=== PATIENT | female | born 2000 | race Caucasian/White ===

== ENCOUNTER 2021-04-16 10:08 | Emergency (ER) | payer BC, SELFPAY ==
[2021-04-16 11:57] VITALS: BP 114/63; PULSE 98; RESP 18; TEMP 36.6; O2SAT 99; BMI 22.0
--- NOTE | 2021-04-16 13:05 | ED.GENADULT ---
HPI - General Adult General Chief complaint: Weakness Stated complaint: TIRED NAUSEA Time Seen by Provider: 04/16/21 12:00 Source: patient Mode of arrival: ambulatory Limitations: no limitations History of Present Illness HPI narrative: 21 y/o female presenting with feeling unwell. She reports feeling fatigued and tired. She slept much of the day yesterday and was nauseous. She did not vomit and denies abdominal pain. She has been eating and drinking normally. She lives a sober living house where someone was recently diagnosed with C. diff. She was sent in for evaluation for possible C. diff given she wasn't feel well. She denies diarrhea, she had a normal BM yesterday. She has had no fever, chills. No cough, SOB, body aches, sore throat or muscle aches. She denies chance of , no sexual activity in >4 months. No urinary symptoms. She has not had her menses in years and has an appointment with [facility] next week for evaluation of possible PCOS. MD complaint: fatigue Onset (ago): day(s) (1) Radiation: non-radiation Severity: moderate Severity scale (1-10): 5 Relieving factors: rest Exacerbating factors: movement Associated symptoms: denies other symptoms Treatments prior to arrival: none Related Data Allergies Allergy/AdvReac Type Severity Reaction Status Date / Time No Known Allergies Allergy Verified 04/16/21 11:56 Review of Systems Review of Systems: Constitutional: No Fever, No Chills ENT/Mouth: No sore throat, No Rhinorrhea, No Swallowing Difficulty Eyes: No Eye Pain, No Swelling, No Redness Cardiovascular: No Chest Pain, No SOB, No Orthopnea, No Edema Respiratory: No Cough, No Sputum, No Wheezing, No dyspnea Gastrointestinal: + Nausea, No Vomiting, No Diarrhea, No abdominal Pain, No Hematochezia, No Melena Genitourinary: No Dysuria, No Urinary Frequency, No Hematuria Musculoskeletal: No joint pain, No Myalgias Skin: No Skin Lesions, No rash Neuro: + Weakness (generalized), No Numbness, No Dizziness, No Headache Psych: No Anxiety/Panic, No Depression Heme/Lymph: No Bruising, No Lymphadenopathy Endocrine: No Polyuria, No Polydipsia PMFSH Past Medical History Attestation statement: The following information was validated with the patient. Medical History Anxiety PTSD (post-traumatic stress disorder) Social History Social History Advance Directives: Yes Advance Directives Information Provided: Yes Advance Directives on File: No Physical Exam Vital Signs: Vital Signs: Last Vital Signs Temp 97.9 F 04/16/21 11:57 Pulse 98 04/16/21 11:57 Resp 18 04/16/21 11:57 BP 114/63 04/16/21 11:57 Pulse Ox 99 04/16/21 11:57 Body Mass Index 22.0 Appearance: Alert. Oriented X3. No acute distress. Eyes: Pupils equal, round and reactive to light. ENT: Pharynx normal. No tonsillar exudate or swelling. Neck: Normal inspection. Neck supple. No LAD CVS: Normal heart rate and rhythm. Pulses normal. Respiratory: No respiratory distress. Breath sounds normal. Abdomen: Soft and nontender. +BS x4 Skin: Skin warm and dry. Normal skin color. Normal skin turgor. No rashes. Extremities: No lower extremity edema. Neuro: Oriented X 3. No motor deficit. No sensory deficit. Course Course Course Narrative: 21 y/o female presenting with fatigue and generalized weakness since yesterday. recent possible exposure to C diff. She has no signs or symptoms of C diff. UA is negative for infection. Upreg negative. Viral PCR sent. Doubt mono without LAD or sore throat. Patient's exam is benign. She has follow up with [facility] next week. Possibly hormonally related, had come uterine cramping yesterday but no vaginal bleeding. She is stable for discharge with plans to f/u with her doctor as outpatient. She was advised to come back to the ER or call her doctor if she develops diarrhea or abdominal pain. Medical Decision Making Lab Data Labs: Lab Results 04/16/21 04/16/21 04/16/21 Range/Units 13:16 13:16 13:16 Urine Color YELLOW Urine Appearance HAZY Urine pH 6.0 (5.0-8.0) Ur Specific [place] >= 1.030 H (1.005-1.025) Urine Protein NEG (NEG-TRACE) MG/DL Urine Glucose (UA) NEG (NEG) MG/DL Urine Ketones 5 (NEG) MG/DL Urine Blood NEG (NEG) Urine Nitrite NEG (NEG) Ur Leukocyte Esterase NEG (NEG) Urine Test NEGATIVE (NEGATIVE) Coronavirus (PCR) NEGATIVE (Negative) Influenza Type A (PCR) NEGATIVE (Negative) Influenza Type B (PCR) NEGATIVE (Negative) RSV RNA Qual (PCR) NEGATIVE (Negative) Discharge Plan Discharge Clinical Impression: Fatigue Qualifiers: Fatigue type: unspecified Qualified Code(s): R53.83 - Other fatigue Patient Disposition: Home, Self-Care Instructions: Fatigue (ED) Additional Instructions: Your urine test was normal today. was negative. You were tested for COVID-19, Flu & RSV today. We will call you with the results this afternoon. You do NOT have C. diff colitis in the absence of diarrhea. If you develop diarrhea or abdominal pain, come back to the ER or call your doctor for C. diff testing. Follow up with your doctor as needed.
[2021-04-16 13:28] LABS: Glucose Urine UA NEG (NEG); Leukocyte Esterase Urine NEG (NEG); Nitrite Urine NEG (NEG); Specific Gravity - Urine >= 1.030 (1.005-1.025); Urine Blood NEG (NEG); Urine Ketones 5 MG/DL (NEG); Urine Protein NEG (NEG-TRACE)
[2021-04-16 13:29] LABS: Appearance Urine HAZY; Color Urine YELLOW
[2021-04-16 13:30] LABS: UPreg QC Valid YES; Urine Pregnancy NEGATIVE (NEGATIVE)
[2021-04-16 14:46] LABS: Influenza A PCR NEGATIVE (Negative); Influenza B PCR NEGATIVE (Negative); Resp Syncy Virus RNA Qual PCR NEGATIVE (Negative); SARS COV2 PCR INHOUSE NEGATIVE (Negative)
== END 2021-04-16 15:21 | disposition home or self-care (01) ==
PROVIDERS: Physician Assistant; Emergency Provider Internal Medicine; PCP Nurse Practitioner Family
DX: R53.83 Other fatigue (principal); Z20.822 Contact with and (suspected) exposure to COVID-19
CPT/HCPCS: 0241U; 36415; 81003; 81025; 99283

== ENCOUNTER 2021-05-07 13:19 | Emergency (ER) | payer BC, SELFPAY ==
[2021-05-07 13:52] VITALS: BP 109/61; PULSE 113; RESP 18; TEMP 37.1; O2SAT 98; BMI 22.0
--- NOTE | 2021-05-07 16:19 | ED_ITS ---
HPI - Back Pain/Injury General Chief Complaint: Back Pain/Injury Stated Complaint: back pain lt side only Time Seen by Provider: 05/07/21 15:10 Source: patient Mode of arrival: ambulatory Limitations: no limitations History of Present Illness HPI Narrative: 21-year-old female with history of PCOS anxiety, depression presents to the ED with atraumatic left-sided back pain. Patient states she developed left-sided back pain approximately 2 days ago shortly after she got her 1st visor COVID vaccine. Denies any abdominal pain nausea or vomiting. Denies any changes in bowel or bladder habits. Denies any active vaginal bleeding or discharge. Denies any burning with urination. Due to concern she felt she needed to be seen. Motrin Tylenol have been used at home for pain control. Related Data Previous Rx's Medication Instructions Recorded acetaminophen [Tylenol] 650 mg PO Q6H PRN #40 cap 05/07/21 cyclobenzaprine 5 mg PO TID PRN #9 tab 05/07/21 ibuprofen 600 mg PO Q6H PRN 10 Days #40 tab 05/07/21 Allergies Allergy/AdvReac Type Severity Reaction Status Date / Time No Known Allergies Allergy Verified 05/07/21 13:51 Review of Systems Review of Systems: Constitutional : No Weight loss, No Fever, No Chills, No Night Sweats, No Fatigue, No Malaise ENT/Mouth : No Hearing loss, No Ear Pain, No Nasal Congestion, No Sinus Pain, No Hoarseness, No sore throat, No Rhinorrhea, No Swallowing Difficulty Eyes: No Eye Pain, No Swelling, No Redness, No Foreign Body, No Discharge, No Vision Changes Cardiovascular : No Chest Pain, No SOB, No Dyspnea on Exertion, No Orthopnea, No Edema, No Palpitations Respiratory : No Cough, No Sputum, No Wheezing, No Smoke Exposure, No Dyspnea Gastrointestinal : No Nausea, No Vomiting, No Diarrhea, No Constipation, No abdominal Pain, No Hematochezia, No Melena Genitourinary : no irregular bleeding, No Dysuria, No Urinary Frequency, No Hematuria, No Urinary Incontinence, No Urgency, + Flank Pain, No Urinary Flow Changes, No Hesitancy Musculoskeletal : + back pain No joint pain, No Myalgias, No Joint Swelling Skin : No Skin Lesions, No rash Neuro : No Weakness, No Numbness, No Paresthesias, No Loss of Consciousness, No Dizziness, No Headache Psych : No Anxiety/Panic, No Depression, No SI/HI/AH/VH, No Social Issues, Heme/Lymph: No Bruising, No Bleeding,No Lymphadenopathy Endocrine : No Polyuria, No Polydipsia, No Temperature Intolerance [facility] Past Medical History Attestation statement: The following information was validated with the patient. Source: old records reviewed and nursing notes reviewed Medical History (Updated 05/07/21 @ 16:40 by SEGUN Pleitez) Anxiety Depression PTSD (post-traumatic stress disorder) Social History Social History Advance Directives: No Advance Directives Information Provided: Yes Patient : No Physical Exam Vital Signs: Vital Signs: Last Vital Signs Temp 98.3 F 05/07/21 16:59 Pulse 89 05/07/21 16:59 Resp 16 05/07/21 16:59 BP 108/60 05/07/21 16:59 Pulse Ox 99 05/07/21 16:59 Body Mass Index 22.0 vital signs have been reviewed as normal and appeared to be correct. Blood pressure normal. Heart rate normal. Respiration rate normal. Temperature normal. Oxygen saturation normal. Appearance: Alert. Oriented X3. No acute distress. Head: Normal external exam. Normocephalic. Atraumatic. No Mauricio signs noted. No raccoon eyes noted Eyes: Conjunctiva and sclera normal. ENT: EAC normal. Moist mucous membranes. No drooling noted. No muffled voice noted. Neck: Normal inspection. Neck supple. FROM. No meningeal signs. CVS: Pulses normal throughout. Respiratory: No respiratory distress. Painless inspiration. No accessory muscle usage noted Abdomen: No visible injury noted. Abdomen soft nondistended nontender Back: Full range of motion noted. Patient with mild left-sided paraspinal back pain no midline tenderness to lumbar or thoracic spine. Mild left-sided CVA tenderness noted. No step-offs or gross deformities. No overlying erythema ecchymosis or crepitus. Skin: Skin warm and dry. Normal skin color. Normal skin turgor. Extremities: No lower extremity edema. Extremities exhibit normal range of motion. Neuro: Oriented X 3. No motor deficit. No sensory deficit. Course Reevaluation(s) Reevaluation #1: Patient is not , urinalysis is negative for both infection and red blood cells feel that this is musculoskeletal will discharge home with muscle relaxer and close outpatient follow-up. MDM - Back Pain/Injury MDM Narrative Medical decision making narrative: patient's vital signs are stable and she is afebrile. Patient presenting to the ED with left-sided atraumatic pain that d oes also involve the left CVA region will obtain urinalysis to ensure the absence of RBC/UTI symptoms /signs. Abdomen soft nondistended nontender no acute concern for intra-abdominal pathology. Will continue to monitor and reassess pending the above. Given the absence of midline spinal pain or injury low suspicion for spinal fracture. No need for imaging Lab Data Labs: Lab Results 05/07/21 05/07/21 Range/Units 16:20 16:20 Urine Color YELLOW Urine Appearance CLEAR Urine pH 6.0 (5.0-8.0) Ur Specific [place] <= 1.005 (1.005-1.025) Urine Protein NEG (NEG-TRACE) MG/DL Urine Glucose (UA) NEG (NEG) MG/DL Urine Ketones NEG (NEG) MG/DL Urine Blood NEG (NEG) Urine Nitrite NEG (NEG) Ur Leukocyte Esterase NEG (NEG) Urine Test NEGATIVE (NEGATIVE) Discharge Plan Discharge Clinical Impression: Thoracic back pain Qualifiers: Chronicity: acute Back pain laterality: left Qualified Code(s): M54.6 - Pain in thoracic spine Patient Disposition: Home, Self-Care Instructions: Back Pain (ED) Additional Instructions: Your seen in the emergency department for left-sided back pain. Urine sample was performed and was negative for infection or red blood cells I do not believe that this is an infection or a kidney stone. This is likely muscular due to inflammation it is uncertain as this is from the COVID vaccine or not. You will be prescribed a muscle relaxer to help with pain continue to use Motrin and Tylenol at home for pain control Prescriptions: New cyclobenzaprine 5 mg tablet 5 mg PO TID PRN (Reason: muscle spasm) Qty: 9 RF: 0 ibuprofen 600 mg tablet 600 mg PO Q6H PRN (Reason: pain) 10 Days Qty: 40 RF: 0 acetaminophen [Tylenol] 325 mg capsule 650 mg PO Q6H PRN (Reason: pain) Qty: 40 RF: 0 Referrals: Yessi Alicea NP [Primary Care Provider] - 2 days Interventions: ED Discharge Assessment Last Done: 05/07/21 17:13 Discharge Date/Time: 05/07/21 17:13 Print Language: Uzbek
[2021-05-07 16:34] LABS: Glucose Urine UA NEG (NEG); Leukocyte Esterase Urine NEG (NEG); Nitrite Urine NEG (NEG); Specific Gravity - Urine <= 1.005 (1.005-1.025); Urine Blood NEG (NEG); Urine Ketones NEG (NEG); Urine Protein NEG (NEG-TRACE)
[2021-05-07 16:36] LABS: Appearance Urine CLEAR; Color Urine YELLOW
[2021-05-07 16:37] LABS: UPreg QC Valid YES; Urine Pregnancy NEGATIVE (NEGATIVE)
[2021-05-07 16:59] VITALS: BP 108/60; PULSE 89; RESP 16; TEMP 36.8; O2SAT 99
== END 2021-05-07 17:13 | disposition home or self-care (01) ==
PROVIDERS: Emergency Provider Emergency Medicine; PCP Nurse Practitioner Family
DX: M54.6 Pain in thoracic spine (principal)
CPT/HCPCS: 81003; 81025; 99283

== ENCOUNTER 2021-10-14 10:24 | Emergency (ER) | payer BC, SELFPAY ==
[2021-10-14 11:03] VITALS: BP 124/73; PULSE 85; RESP 16; TEMP 36.8; O2SAT 100; BMI 22.8
[2021-10-14 11:08] VITALS: BP 124/75; PULSE 80; O2SAT 100
--- NOTE | 2021-10-14 11:42 | ED_ITS ---
HPI - Head Injury General Chief complaint: Head Injury Stated complaint: HEAD INJURY? Time Seen by Provider: 10/14/21 11:42 Source: patient Mode of arrival: ambulatory Limitations: no limitations History of Present Illness HPI Narrative: 21 yo female past medical history significant for previous concussions, opiate use disorder presents to the emergency department with complains of headache, and blurred vision status post getting hit with a cutting board at work X1 day. Patient states that she was working in a cutting board fell on her head, at the time she started having headache, and progressively worsening blurred vision. She states this feels like all the other concussions she has had in the past. She also states she has a little bit nauseous, but nothing too severe. She denies chest pain, shortness of breath, dizziness, fevers, chills, abdominal pain, vomiting. NO LOC MD Complaint: head injury and head pain Onset (ago): day(s) Mechanism of Injury: work related injury Place: work Loss of Consciousness: no Location of injury: occipital Severity: mild Severity scale (1-10): 1 Quality: dull Radiation: none Other Injuries: none Associated symptoms: denies other symptoms Related Data Previous Rx's Medication Instructions Recorded acetaminophen 325 mg capsule 650 mg PO Q6H PRN #40 cap 05/07/21 (Tylenol) cyclobenzaprine 5 mg tablet 5 mg PO TID PRN #9 tab 05/07/21 ibuprofen 600 mg tablet 600 mg PO Q6H PRN 10 Days #40 tab 05/07/21 Allergies Allergy/AdvReac Type Severity Reaction Status Date / Time No Known Allergies Allergy Verified 05/07/21 13:51 Review of Systems Review of Systems: Constitutional : No Weight loss, No Fever, No Chills, No Fatigue, No Malaise ENT/Mouth : No sore throat, No Rhinorrhea Eyes: No Eye Pain, No Swelling, No Redness, + blurred vision Cardiovascular : No Chest Pain, No SOB, No Dyspnea on Exertion, No Orthopnea, No Edema, No Palpitations Respiratory : No Cough, No Sputum, No Wheezing Gastrointestinal : + Nausea, No Vomiting, No Diarrhea, No Constipation, No abdominal Pain, No Hematochezia, No Melena Genitourinary : No Dysuria, No Urinary Frequency, No Hematuria, Musculoskeletal : No joint pain, No Myalgias, No Joint Swelling Skin : No Skin Lesions, No rash Neuro : No Weakness, No Numbness, No Dizziness, + Headache All other systems reviewed and are negative [facility] Past Medical History Attestation statement: The following information was validated with the patient. Source: old records reviewed and nursing notes reviewed Medical History (Updated 10/14/21 @ 11:49 by SEGUN Wren) Anxiety Depression PTSD (post-traumatic stress disorder) Social History Social History Advance Directives: No Advance Directives Information Provided: Yes Patient : No Physical Exam Vital Signs: Vital Signs: Last Vital Signs Temp 98.3 F 10/14/21 11:03 Pulse 85 10/14/21 11:03 Resp 16 10/14/21 11:03 BP 124/73 10/14/21 11:03 Pulse Ox 100 10/14/21 11:03 Body Mass Index 22.8 Appearance: Alert.? Oriented X3.? No acute distress.? Head: Normocephalic, atraumatic, no step-offs or deformities Eyes: Pupils equal, round and reactive to light.?EOMI ENT: Pharynx normal.? Neck: Normal inspection.? Neck supple.? CVS: Normal heart rate and rhythm.? Pulses normal.? Respiratory: No respiratory distress.? Breath sounds normal.? Abdomen: Soft and nontender.? Skin: Skin warm and dry.? Normal skin color.? Normal skin turgor.? Extremities: No lower extremity edema.? No calf ttp. 5/5 strength to bilateral upper and lower extremities Back: No midline tenderness, no C-spine tenderness, full range of motion, no CVA tenderness bilaterally Neuro: Oriented X 3.? No motor deficit.? No sensory deficit. Normal gait no ataxia MDM - Head Injury [facility] Narrative Medical decision making narrative: 1143 21-year-old female past medical history significant for anxiety, depression, opiate use disorder, previous concussions presents to the emergency department with headache and blurred vision status post getting hit with a cutting board at work. Patient states she bent down, and a cutting board following her head. She immediately started experiencing a headache, and blurred vision. Patient states she has had multiple concussions in the past, and this feels like her typical concussion. She denies dizziness, fevers, chills, vomiting, chest pain, shortness of breath, weakness, disequilibrium, difficulties with ambulation. Upon physical examination patient appears well, no distress. She is alert and oriented x3. No focal neuro deficits. Steady gait free of ataxia. Head is normocephalic, atraumatic, no step-offs or deformities. Lungs are clear to auscultation bilaterally. S1 and S2 were appreciated free of murmurs. Abdomen soft nontender nondistended. Plan at this time is to give patient Tylenol and Zofran for nausea. At this time there is no need for any laboratory studies. There was no loss of consciousness, I used split decision-making with the patient and expressed to her that she can have a CT scan done to ensure that there is no internal bleeding, or fractures which I recommend, however patient does not not want this done, she does not feel as though this is necessary since this feels like her typical concussion in her typical headache. She has been advised to return to the emergency department with any new or worsening symptoms, or if she experiences dizziness, double vision, pain with extraocular movements, difficulties with ambulation, weakness, chest pain, shortness of breath. Patient is safe for discharge home with PCP follow-up. This is likely a concussion and unlikely that this is an ICH. Lab Data Labs: Lab Results 10/14/21 Range/Units 11:21 Urine Test NEGATIVE (NEGATIVE) Discharge Plan Discharge Clinical Impression: Concussion without loss of consciousness Patient Disposition: Home, Self-Care Instructions: Concussion (ED) Additional Instructions: Follow-up with your primary care provider this week. Continue taking your regular medicaiton. You can take ibuprofen every 6 hours, and Tylenol every 4 hours as needed for headache. Please limit your screen time as this can make a concussion worse. ?Rest your brain ? Return to the emergency department with new or worsening symptoms. Or if you develop dizziness, vision changes, worsening headache, changes in your gait, confusion, chest pain, shortness of breath, fevers. In case of emergency call 911 Prescriptions: No Action cyclobenzaprine 5 mg tablet 5 mg PO TID PRN (Reason: muscle spasm) Qty: 9 RF: 0 ibuprofen 600 mg tablet 600 mg PO Q6H PRN (Reason: pain) 10 Days Qty: 40 RF: 0 acetaminophen [Tylenol] 325 mg capsule 650 mg PO Q6H PRN (Reason: pain) Qty: 40 RF: 0 Referrals: Physician,Unknown J [Primary Care Provider] - 2 days Stand Alone Forms: Work/School Release
[2021-10-14 11:49] LABS: UPreg QC Valid YES; Urine Pregnancy NEGATIVE (NEGATIVE)
[2021-10-14] MEDS: Ondansetron ODT 4 MG TAB.RAPDIS TRANSLINGU (11:49)
[2021-10-14] MEDS: Acetaminophen 325 MG TABLET 650 MG PO (11:50)
== END 2021-10-14 12:01 | disposition home or self-care (01) ==
PROVIDERS: Emergency Provider Emergency Medicine Emergency Medical Services
DX: S06.0X0A Concussion without loss of consciousness, initial encounter (principal); W20.8XXA Other cause of strike by thrown, projected or falling object, initial encounter; Y93.9 Activity, unspecified; Y92.9 Unspecified place or not applicable; Y99.0 Civilian activity done for income or pay
CPT/HCPCS: 81025; 99283; 99284

== ENCOUNTER 2021-11-01 23:52 | Emergency (ER) | payer BC, SELFPAY ==
[2021-11-02 00:39] VITALS: BP 129/87; PULSE 103; RESP 20; TEMP 36.2; O2SAT 100; BMI 21.2
--- NOTE | 2021-11-02 02:38 | ED_ITS ---
HPI - General Adult General Chief complaint: Upper Respiratory Symptoms Stated complaint: covid symptoms, exposed Time Seen by Provider: 11/02/21 02:33 Source: patient Mode of arrival: ambulatory Limitations: no limitations History of Present Illness HPI narrative: Patient's emergency room complaining of generalized fatigue, stuffy nose for 2-3 days. Patient denies fever chills, complaining of occasional cough. Related Data Previous Rx's Medication Instructions Recorded acetaminophen 325 mg capsule 650 mg PO Q6H PRN #40 cap 05/07/21 (Tylenol) cyclobenzaprine 5 mg tablet 5 mg PO TID PRN #9 tab 05/07/21 ibuprofen 600 mg tablet 600 mg PO Q6H PRN 10 Days #40 tab 05/07/21 ibuprofen 600 mg tablet 600 mg PO Q6H PRN #10 tab 11/02/21 Allergies Allergy/AdvReac Type Severity Reaction Status Date / Time No Known Allergies Allergy Verified 05/07/21 13:51 Review of Systems Review of Systems: Constitutional : No Weight loss, No Fever, No Chills, No Night Sweats, No Fatigue, No Malaise ENT/Mouth : No Hearing loss, No Ear Pain, c/o Nasal Congestion, No Sinus Pain, No Hoarseness, No sore throat, complaining of stuffy nose Eyes: No Eye Pain, No Swelling, No Redness, No Foreign Body, No Discharge, No Vision Changes Cardiovascular : No Chest Pain, No SOB, No Dyspnea on Exertion, No Orthopnea, No Edema, No Palpitations Respiratory : No Cough, No Sputum, No Wheezing, No Smoke Exposure, No Dyspnea Gastrointestinal : No Nausea, No Vomiting, No Diarrhea, No Constipation, No abdominal Pain, No Hematochezia, No Melena Genitourinary : no irregular bleeding, No Dysuria, No Urinary Frequency, No Hematuria, No Urinary Incontinence, No Urgency, No Flank Pain, No Urinary Flow Changes, No Hesitancy Musculoskeletal : No joint pain, No Myalgias, No Joint Swelling Skin : No Skin Lesions, No rash Neuro : No Weakness, No Numbness, No Paresthesias, No Loss of Consciousness, No Dizziness, No Headache Psych : No Anxiety/Panic, No Depression, No SI/HI/AH/VH, No Social Issues, Heme/Lymph: No Bruising, No Bleeding,No Lymphadenopathy Endocrine : No Polyuria, No Polydipsia, No Temperature Intolerance PMFSH Past Medical History Medical History Anxiety Depression PTSD (post-traumatic stress disorder) Social History Social History Advance Directives: No Physical Exam Vital Signs: Vital Signs: Last Vital Signs Temp 97.1 F 11/02/21 00:39 Pulse 97 11/02/21 02:55 Resp 18 11/02/21 02:55 BP 125/82 11/02/21 02:55 Pulse Ox 100 11/02/21 02:55 BMI result Body Mass Index 21.2 Const: Other: Appearance: Alert. Oriented X3. No acute distress. Well- appearing Eyes: Pupils equal, round and reactive to light. ENT: Pharynx normal. Neck: Normal inspection. Neck supple. No lymph nodes noted. No crepitus CVS: Normal heart rate and rhythm. Pulses normal. Normal S1 and S2 Respiratory: No respiratory distress. Breath sounds normal. No Wheezing. No rales Abdomen: Soft and nontender. No rigidity. No distention. good BS x4 Skin: Skin warm and dry. Normal skin color. Normal skin turgor. Extremities: No lower extremity edema. No Lacerations. No Rash Neuro: Oriented X 3. No motor deficit. No sensory deficit. Moving all extermities. No slurred speech. Course Course Course Narrative: Patient's COVID test is negative. Patient likely having a viral syndrome. Medical Decision Making Lab Data Labs: Lab Results 11/02/21 Range/Units 02:44 COVID-19 (JACQUELINE) Negative (Negative) COVID-19 Clin Com See Note Discharge Plan Discharge Clinical Impression: Acute viral syndrome Patient Disposition: Home, Self-Care Instructions: Viral Syndrome (ED) Additional Instructions: Please follow-up with your primary care physician tomorrow. If you have any worsening or new symptoms, please return to the emergency room or call 911 Prescriptions: New ibuprofen 600 mg tablet 600 mg PO Q6H PRN (Reason: fever or pain) Qty: 10 RF: 0 No Action cyclobenzaprine 5 mg tablet 5 mg PO TID PRN (Reason: muscle spasm) Qty: 9 RF: 0 ibuprofen 600 mg tablet 600 mg PO Q6H PRN (Reason: pain) 10 Days Qty: 40 RF: 0 acetaminophen [Tylenol] 325 mg capsule 650 mg PO Q6H PRN (Reason: pain) Qty: 40 RF: 0 Stand Alone Forms: Work/School Release
[2021-11-02 02:55] VITALS: BP 125/82; PULSE 97; RESP 18; O2SAT 100
[2021-11-02 03:02] LABS: COVID-19 Test Negative (Negative); IDNOW Serial# 9DD0AD1C
--- NOTE | 2021-11-02 03:13 | PC.NURSE ---
pt sleeping, reviewed discharge instructions and medication. Pt verbalized understanding.
== END 2021-11-02 03:20 | disposition home or self-care (01) ==
PROVIDERS: Emergency Provider Emergency Medicine
DX: B34.9 Viral infection, unspecified (principal); R53.83 Other fatigue; Z20.822 Contact with and (suspected) exposure to COVID-19
CPT/HCPCS: 36415; 87635; 99283

== ENCOUNTER 2022-02-21 09:12 | Emergency (ER) | payer BC, SELFPAY ==
[2022-02-21 10:16] VITALS: PULSE 104; RESP 16; TEMP 37.7; O2SAT 99; BMI 22.2
--- NOTE | 2022-02-21 10:22 | ED_ITS ---
HPI - URI/Sore Throat General Chief Complaint: General Medical Stated Complaint: flu symptons sob weaknes Time Seen by Provider: 02/21/22 10:19 Source: patient Mode of arrival: ambulatory Limitations: no limitations History of Present Illness HPI Narrative: Patient is 22-year-old female with a past medical history of anxiety, depression, type 2 diabetes on metformin. Patient presents emergency department for evaluation of upper respiratory symptoms. She reports that she was having a stuffy/ runny nose for a few days. Yesterday she was feeling weak and tired. She woke this morning with a severe headache 10/10, sore throat, loss of taste, nausea, vomiting when she eats, shortness of breath, body aches. She was vaccinated for COVID- 19, received her 2nd dose in May 2021. Denies sick contacts, or possible COVID-19 exposure. Denies vision changes, shaking chills, neck pain, neck stiffness, chest pain, palpitations, abdominal, dysuria, urinary frequency / hesitancy / urgency, diarrhea, constipation, possibility of , last menstrual period 2 weeks ago. Related Data Home Medications Medication Instructions Recorded Confirmed gabapentin 600 mg tablet 600 mg PO TID 02/21/22 lorazepam 1 mg tablet 1 mg PO TID 02/21/22 metformin 500 mg tablet 500 mg PO BID 02/21/22 mirtazapine 7.5 mg tablet 1 tab PO BEDTIME 02/21/22 norethindrone 0.5 mg-ethinyl 1 tab PO DAILY 02/21/22 estradiol 35 mcg tablet (Nortrel) venlafaxine 150 mg 150 mg PO DAILY 02/21/22 capsule,extended release 24 hr Allergies Allergy/AdvReac Type Severity Reaction Status Date / Time No Known Allergies Allergy Verified 05/07/21 13:51 Review of Systems Review of Systems: Constitutional : No Fever, No Chills ENT/Mouth : positive sore throat, positive rhinorrhea Eyes: No Redness, No Discharge, No Vision Changes Cardiovascular : No Chest Pain, positive SOB, no Dyspnea on Exertion, No Edema Respiratory : positive Cough, No Sputum, No Wheezing, Gastrointestinal : positive Nausea, positive Vomiting, No Diarrhea, No abdominal Pain Genitourinary : No Dysuria, No Hematuria Musculoskeletal : positive body aches Skin : No rash Neuro : generalized weakness, No Numbness, positive headache Psych : No anxiety, depression Heme/Lymph: No Bruising, No Bleeding Endocrine : No Polyuria, No Polydipsia Yes all other systems are reviewed and are negative [facility] Past Medical History Attestation statement: The following information was validated with the patient. Source: old records reviewed Medical History Anxiety Depression PTSD (post-traumatic stress disorder) Social History Social History Advance Directives: No Advance Directives Information Provided: No Patient : No Physical Exam Vital Signs: Vital Signs: Last Vital Signs Temp 98.9 F 02/21/22 14:12 Pulse 82 02/21/22 14:12 Resp 14 02/21/22 14:12 BP 118/68 02/21/22 14:12 Pulse Ox 99 02/21/22 10:16 BMI result Body Mass Index 22.2 Vital signs have been reviewed and appeared to be correct. Blood pressure normal.? Mild tachycardia pulse 104..? Respiration rate normal. Temperature high normal 99.8.? Oxygen saturation normal. Appearance: Alert.?Oriented to person, place and time. No acute distress.?Normal affect. Eyes: Pupils equal, round and reactive to light.? ENT: bilateral ear canals clear, TM normal. Pharynx with mild erythema, no exudate, no tonsillar swelling, uvula midline.?? Neck: Normal inspection.? Neck supple.?? CVS: Heart sounds normal. mild tachycardia..? Pulses normal.?? Respiratory: No respiratory distress.? Lung sounds clear to auscultation bi laterally?? Abdomen: Soft and non-tender. Normoactive bowel sounds. No pulsatile mass.?? Skin: Skin warm and dry.? Normal skin color.? Normal skin turgor.?? Extremities: No lower extremity edema.? Neuro: Moves all extremities spontaneously. Sensation intact bilaterally. CN II- XII intact. No focal neuro deficits. Ambulates with normal steady gait. Course Course Course Narrative: Patient is a 22-year-old female being evaluated for upper respiratory symptoms, appears uncomfortable Overall. She is mildly tachycardic with a heart rate of 104, though I suspect that this is secondary to pain and dehydration rather than bacterial infection. Will obtain testing for COVID-19 and influenza, will obtain throat strep culture though low suspicion for this. Basic labs including CBC and CMP to be obtained. Will medicate with Toradol, Tylenol, and normal saline 1L IV fluid. Not consistent with peritonsillar abscess, no meningismus. Reevaluation(s) Reevaluation #1: Advised patient that she is COVID-19 positive, she is anxious and tearful about this. Fearful of dying. Discussed indications for monoclonal antibody infusion, patient is agreeable with plan therefore will refer to [facility]. Return to work in 5 days if symptoms are improving and has been fever free for 24 hours without use of tylenol or ibuprofen. Currently, she would like to try and eat something at this time which is appropriate. Time: 11:36 Reevaluation #2: CBC reveals a mild leukopenia with WBC 4.2, CMP is unremarkable. Patient tolerating p.o. intake. Heart rate has improved to 80s. ambulatory with steady gait. Will plan for discharge home. Discussed reasons to return back to the emergency department. Patient is agreeable with plan of care. Time: 13:09 MDM - URI/Sore Throat Lab Data Result diagrams: 02/21/22 10:54 02/21/22 12:12 Labs: Lab Results 02/21/22 02/21/22 02/21/22 Range/Units 10:54 10:54 10:54 WBC 4.2 L (4.8-10.8) X10*3/uL RBC 4.16 L (4.20-5.50) X10*6/uL Hgb 12.3 (12.0-16.0) g/dl Hct 37.1 (37.0-47.0) % MCV 89.2 (80.0-98.0) fL MCH 29.6 (27.0-33.0) pg MCHC 33.2 (31.0-35.0) g/dl RDW 13.5 (11.0-16.0) % Plt Count 265 (160-400) X10*3/uL MPV 10.0 (9.4-12.3) fL Immature Gran % (Auto) 0.5 H (0.0-0.4) % Neut % (Auto) 82.2 H (45-73) % Lymph % (Auto) 8.7 L (20-40) % Candler % (Auto) 6.7 (2-11) % Eos % (Auto) 1.2 (0-4) % Baso % (Auto) 0.7 (0-2) % Lymph # (Auto) 0.4 L (1.2-4.9) X10*3/uL Candler # (Auto) 0.3 (0.1-1.2) X10*3/uL Eos # (Auto) 0.1 (0.0-0.4) X10*3/uL Baso # (Auto) 0.0 (0.0-0.2) X10*3/uL Abs Immat Gran (auto) 0.02 (0.00-0.03) X10*3/uL Absolute Neuts (auto) 3.4 (2.0-8.3) x10*3/uL Absolute Nucleated RBC 0.000 (0.0-0.012) X10*3/uL Nucleated RBC % (auto) 0.0 (0.0-0.2) /100WBC Sodium (135-145) mmol/L Potassium (3.3-5.1) mmol/L Chloride (96-108) mmol/L Carbon Dioxide (22-29) mmol/L Anion Gap (12-20) BUN (9-16) mg/dL Creatinine (0.5-1.4) mg/dL Estim Creat Clear Calc Estimated GFR Random Glucose (60-115) mg/dL Calcium (8.4-10.2) mg/dL Magnesium (1.6-2.6) mg/dL Total Bilirubin (0.0-1.0) mg/dL AST (5-31) U/L ALT (0-31) U/L Alkaline Phosphatase (39-117) U/L Total Protein (6.5-8.0) g/dL Albumin (3.5-5.0) g/dL COVID-19 (JACQUELINE) Positive A (Negative) COVID-19 Clin Com See Note Influenza Type A (ANKUSH) Negative (Negative) Influenza Type B (ANKUSH) Negative (Negative) Influenza A & B Note See Note 02/21/22 Range/Units 12:12 WBC (4.8-10.8) X10*3/uL RBC (4.20-5.50) X10*6/uL Hgb (12.0-16.0) g/dl Hct (37.0-47.0) % MCV (80.0-98.0) fL MCH (27.0-33.0) pg MCHC (31.0-35.0) g/dl RDW (11.0-16.0) % Plt Count (160-400) X10*3/uL MPV (9.4-12.3) fL Immature Gran % (Auto) (0.0-0.4) % Neut % (Auto) (45-73) % Lymph % (Auto) (20-40) % Candler % (Auto) (2-11) % Eos % (Auto) (0-4) % Baso % (Auto) (0-2) % Lymph # (Auto) (1.2-4.9) X10*3/uL Candler # (Auto) (0.1-1.2) X10*3/uL Eos # (Auto) (0.0-0.4) X10*3/uL Baso # (Auto) (0.0-0.2) X10*3/uL Abs Immat Gran (auto) (0.00-0.03) X10*3/uL Absolute Neuts (auto) (2.0-8.3) x10*3/uL Absolute Nucleated RBC (0.0-0.012) X10*3/uL Nucleated RBC % (auto) (0.0-0.2) /100WBC Sodium 137 (135-145) mmol/L Potassium 3.9 (3.3-5.1) mmol/L Chloride 107 (96-108) mmol/L Carbon Dioxide 22 (22-29) mmol/L Anion Gap 12 (12-20) BUN 9 (9-16) mg/dL Creatinine 0.81 (0.5-1.4) mg/dL Estim Creat Clear Calc 111.9 Estimated GFR > 60 Random Glucose 96 (60-115) mg/dL Calcium 8.9 (8.4-10.2) mg/dL Magnesium 1.8 (1.6-2.6) mg/dL Total Bilirubin 0.4 (0.0-1.0) mg/dL AST 15 (5-31) U/L ALT 12 (0-31) U/L Alkaline Phosphatase 39 (39-117) U/L Total Protein 6.5 (6.5-8.0) g/dL Albumin 3.8 (3.5-5.0) g/dL COVID-19 (JACQUELINE) (Negative) COVID-19 Clin Com Influenza Type A (ANKUSH) (Negative) Influenza Type B (ANKUSH) (Negative) Influenza A & B Note Discharge Plan Discharge Clinical Impression: COVID-19 Patient Disposition: Home, Self-Care Instructions: COVID-19 (Coronavirus Disease 2019) (ED) Additional Instructions: You have tested positive for COVID-19. You can return to work on February 26, 2022 with strict mask wearing for an additional 5 days if your symptoms have improved, we do not have a fever for 24 hours without the use of Tylenol or ibuprofen. We have sent a referral to [facility], for the monoclonal antibody infusion, you will be contacts by them. Please return to the emergency department with any new worsening symptoms or concerns. If you develop chest pain, shortness of breath, difficulty breathing, passing out, or inability to tolerate oral fluids or food youshould come back to the emergency department. Prescriptions: No Action metformin 500 mg tablet 500 mg PO BID 0RF gabapentin 600 mg tablet 600 mg PO TID 0RF venlafaxine 150 mg capsule,extended release 24hr 150 mg PO DAILY 0RF lorazepam 1 mg tablet 1 mg PO TID 0RF Nortrel 0.5/35 (28) 0.5-35 mg-mcg tablet 1 tab PO DAILY 0RF mirtazapine 7.5 mg tablet 1 tab PO BEDTIME 0RF Stand Alone Forms: Work/School Release Interventions: ED Discharge Assessment Last Done: 02/21/22 14:10 Discharge Date/Time: 02/21/22 14:11
[2022-02-21] MEDS: Ketorolac Tromethamine 30 MG/ML VIAL IVPUSH (10:55)
[2022-02-21] MEDS: ondansetron HCL 4 MG/2 ML VIAL IVPUSH (10:56)
[2022-02-21] MEDS: Acetaminophen 325 MG TABLET 975 MG PO (10:57)
[2022-02-21] MEDS: 0.9 % Sodium Chloride 1,000 ML 999 ML IV (10:57)
[2022-02-21 10:58] LABS: MANUAL DIFF FLAG NO
[2022-02-21 11:13] LABS: COVID-19 Test Positive (Negative); IDNOW Serial# 16C4AD1C
[2022-02-21 11:22] LABS: Influenza A Negative (Negative); Influenza B2 Negative (Negative)
[2022-02-21 12:38] LABS: Alanine Aminotransferase 12 U/L (0-31); Albumin Level 3.8 g/dL (3.5-5.0); Alkaline Phosphatase 39 U/L (39-117); Anion Gap 12 (12-20); Aspartate Amino Transferase 15 U/L (5-31); Bilirubin Total 0.4 mg/dL (0.0-1.0); Blood Urea Nitrogen 9 mg/dL (9-16); Calcium 8.9 mg/dL (8.4-10.2); Carbon Dioxide 22 mmol/L (22-29); Chloride 107 mmol/L (96-108); Creatinine Clr Calc Pharmacy 111.9; Estimated Glomerular Filt Rate > 60; Glucose Random 96 mg/dL (60-115); Magnesium 1.8 mg/dL (1.6-2.6); Potassium 3.9 mmol/L (3.3-5.1); Sodium 137 mmol/L (135-145); Total Protein 6.5 g/dL (6.5-8.0)
[2022-02-21 13:01] LABS: Basophils Percent Auto 0.7 % (0-2); Eosinophils Absolute Auto 0.1 X10*3/uL (0.0-0.4); Eosinophils Percent Auto 1.2 % (0-4); Hematocrit 37.1 % (37.0-47.0); Hemoglobin 12.3 g/dl (12.0-16.0); Imm Gran Abs Auto 0.02 X10*3/uL (0.00-0.03); Imm Gran Pct Auto 0.5 % (0.0-0.4); Lymphocytes Absolute Auto 0.4 X10*3/uL (1.2-4.9); Lymphocytes Percent Auto 8.7 % (20-40); Mean Corpuscular HGB Conc 33.2 g/dl (31.0-35.0); Mean Corpuscular Hemoglobin 29.6 pg (27.0-33.0); Mean Corpuscular Volume 89.2 fL (80.0-98.0); Monocytes Absolute Auto 0.3 X10*3/uL (0.1-1.2); Monocytes Percent Auto 6.7 % (2-11); Neutrophils Absolute Auto 3.4 x10*3/uL (2.0-8.3); Neutrophils Percent Auto 82.2 % (45-73); Platelet Count 265 X10*3/uL (160-400); Red Blood Count 4.16 X10*6/uL (4.20-5.50); Red Cell Distribution Width 13.5 % (11.0-16.0); White Blood Count 4.2 X10*3/uL (4.8-10.8)
[2022-02-21 14:12] VITALS: BP 118/68; PULSE 82; RESP 14; TEMP 37.2
== END 2022-02-21 14:11 | disposition home or self-care (01) ==
PROVIDERS: Nurse Practitioner Family; Emergency Provider Emergency Medicine
DX: U07.1 COVID-19 (principal); R00.0 Tachycardia, unspecified; E11.9 Type 2 diabetes mellitus without complications
CPT/HCPCS: 80053; 83735; 85025; 87502; 87635; 96361; 96374; 96375; 99284; J1885; J2405

== ENCOUNTER 2023-05-11 08:35 | Emergency (ER) | payer OTHER, BC, SELFPAY ==
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
[2023-05-11 08:47] VITALS: BP 138/85; BP 148/96; PULSE 113; PULSE 92; RESP 16; TEMP 36.8; O2SAT 98; BMI 27.3
[2023-05-11 08:58] VITALS: BP 138/85; PULSE 92; RESP 16; O2SAT 97
[2023-05-11 08:59] LABS: MANUAL DIFF FLAG NO
[2023-05-11 09:00] LABS: Basophils Absolute Auto 0.1 X10*3/uL (0.0-0.2); Basophils Percent Auto 1.1 % (0-2); Eosinophils Absolute Auto 0.1 X10*3/uL (0.0-0.4); Eosinophils Percent Auto 1.9 % (0-4); Hematocrit 40.9 % (37.0-47.0); Hemoglobin 13.5 g/dl (12.0-16.0); Imm Gran Abs Auto 0.02 X10*3/uL (0.00-0.03); Imm Gran Pct Auto 0.3 % (0.0-0.4); Lymphocytes Percent Auto 30.5 % (20-40); Mean Corpuscular Hemoglobin 29.3 pg (27.0-33.0); Mean Corpuscular Volume 88.7 fL (80.0-98.0); Mean Platelet Volume 9.2 fL (9.4-12.3); Monocytes Absolute Auto 0.3 X10*3/uL (0.1-1.2); Monocytes Percent Auto 4.8 % (2-11); Neutrophils Percent Auto 61.4 % (45-73); Platelet Count 342 X10*3/uL (160-400); Red Blood Count 4.61 X10*6/uL (4.20-5.50); Red Cell Distribution Width 12.6 % (11.0-16.0); White Blood Count 6.4 X10*3/uL (4.8-10.8)
[2023-05-11 09:08] LABS: INTERNATIONAL NORM RATIO 0.9 (0.9-1.1); Prothrombin Time 10.4 SEC (10.0-13.1)
[2023-05-11 09:11] LABS: Partial Thromboplastin Time 25.6 SEC (26.0-36.4)
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
[2023-05-11 09:17] LABS: Alanine Aminotransferase 10 U/L (0-31); Albumin Level 3.6 g/dL (3.5-5.0); Alkaline Phosphatase 35 U/L (39-117); Anion Gap 14 (12-20); Aspartate Amino Transferase 16 U/L (5-31); Bilirubin Direct 0.1 mg/dL (0.0-0.5); Bilirubin Total 0.5 mg/dL (0.0-1.0); Blood Urea Nitrogen 10 mg/dL (9-16); Carbon Dioxide 19 mmol/L (22-29); Chloride 109 mmol/L (96-108); Creatinine Clr Calc Pharmacy 126.7; Estimated Glomerular Filt Rate > 60; Glucose Random 86 mg/dL (60-115); Potassium 4.5 mmol/L (3.3-5.1); Sodium 137 mmol/L (135-145)
[2023-05-11] MEDS: Acetaminophen 325 MG TABLET 975 MG PO (09:35)
[2023-05-11 10:03] VITALS: BP 128/75; PULSE 79; RESP 18; O2SAT 97
[2023-05-11] MEDS: LORazepam 1 MG TABLET PO (10:13)
== END 2023-05-11 10:57 | disposition home or self-care (01) ==
PROVIDERS: Physician Assistant; Emergency Provider Emergency Medicine; PCP Family Medicine
DX: S09.90XA Unspecified injury of head, initial encounter (principal); M54.2 Cervicalgia; V43.02XA Car driver injured in collision with other type car in nontraffic accident, initial encounter; Y93.9 Activity, unspecified; Y92.410 Unspecified street and highway as the place of occurrence of the external cause; Y99.9 Unspecified external cause status; Z79.899 Other long term (current) drug therapy
CPT/HCPCS: 36415; 70450; 72125; 80048; 80076; 83735; 85025; 85610; 85730; 99284

== ENCOUNTER → 2023-06-15 10:29 | Outpatient (BNVA) | payer OTHER, SELFPAY | PROVIDERS: PCP Family Medicine; Visit Provider Physician Assistant | DX: S50.871A Other superficial bite of right forearm, initial encounter (principal); W50.3XXA Accidental bite by another person, initial encounter | CPT/HCPCS: 99202 ==

== ENCOUNTER 2025-03-30 20:00 | Emergency (ER) | payer OTHER, SELFPAY ==
--- NOTE | ~2025-03-30 | CT_ITS ---
CLINICAL HISTORY: abd pain r o appy CT abdomen and pelvis without contrast Comparison: None available Findings: Mild bibasilar atelectasis. No obstructing stone in either kidney or either ureter. The adrenal glands are normal. Gallbladder and pancreas are unremarkable for noncontrast study. The spleen is nonenlarged. The liver is unremarkable as this is a noncontrast study. Small mesenteric and periaortic lymph nodes are nonspecific and may be reactive. Mild fluid and mesentery present. No small bowel obstruction. Severe stool burden is present, including the cecum. Small appendicolith present without acute appendicitis by noncontrast imaging. Mild wall thickening of the urinary bladder is nonspecific and may reflect cystitis. The uterus is anteverted. No adnexal soft tissue mass. Mild free fluid in the pelvis may be physiologic. No acute osseous abnormality. IMPRESSION: 1. No obstructing stone in either kidney or either ureter. 2. Appendicolith present without acute appendicitis in this noncontrast study. 3. Wall thickening of the urinary bladder. 4. Severe stool burden. No small bowel obstruction. 3. Mild fluid in the mesentery is nonspecific. Differential considerations include Suly mesentery and mesenteric adenitis. This document has been electronically signed by: Tomy Hatfield MD on 03/30/2025 23:11:51
--- NOTE | 2025-03-30 20:06 | ED_ITS ---
HPI - Nausea/Vomiting/Diarrhea General Chief complaint: Abdominal Pain Stated complaint: Food poisoning? Time Seen by Provider: 03/30/25 21:39 Source: patient Mode of arrival: ambulatory Limitations: no limitations History of Present Illness ED Provider: DR. Garcia HPI Narrative: 25-year-old female came in for evaluation of 4 days of sore throat, generalized body ache, subjective fever, then 2 days later started to have upper abdominal cramps and unable to tolerate p.o. intake every time she vomit she gets diffuse abdominal cramps. 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 Never had intra-abdominal surgery, last bowel movement was in the ED was formed bowel movement with no blood, no diarrhea, no dysuria, no frequency urination. Related Data Home Medications ?Medication ?Instructions ?Recorded ?Confirmed gabapentin 600 mg tablet 600 mg PO TID 02/21/22 lorazepam 1 mg tablet 1 mg PO TID 02/21/22 metformin 500 mg tablet 500 mg PO BID 02/21/22 mirtazapine 7.5 mg tablet 1 tab PO BEDTIME 02/21/22 norethindrone 0.5 mg-ethinyl 1 tab PO DAILY 02/21/22 estradiol 35 mcg tablet (Nortrel) venlafaxine 150 mg 150 mg PO DAILY 02/21/22 capsule,extended release 24 hr Previous Rx's ?Medication ?Instructions ?Recorded cyclobenzaprine 10 mg tablet 10 mg PO TID PRN muscle spasm #14 05/11/23 tabs ibuprofen 600 mg tablet 600 mg PO Q8H PRN pain #20 tabs 05/11/23 lidocaine 5 % topical patch 1 patch topical DAILY #15 ea 05/11/23 amoxicillin 875 mg-potassium 1 tab PO BID #20 tabs 03/30/25 clavulanate 125 mg tablet Allergies Allergy/AdvReac Type Severity Reaction Status Date / Time No Known Allergies Allergy Verified 03/30/25 20:09 Review of Systems 2 Review of Systems: All other systems are reviewed and are negative Constitutional: Reports as per HPI and Reports no additional constitutional complaints Eyes: Reports as per HPI and Reports no additional eye complaints Reports system reviewed and no additional complaints, except as documented Cardiovascular: Reports as per HPI and Reports no additional cardiovascular complaints Respiratory: Reports as per HPI and Reports no additional respiratory complaints Gastrointestinal: Reports as per HPI and Reports no additional gastrointestinal complaints Genitourinary: Reports no additional female genitourinary complaints Musculoskeletal: Reports no additional musculoskeletal complaints Skin/Breast: Reports system reviewed and no additional complaints, except as docu Psychiatric: Reports no additional psychiatric complaints Endocrine: Reports no additional endocrine complaints Hematologic/Lymphatic: Reports no additional hematologic/lymphatic complaints Allergic/Immunologic: Reports no additional allergic/immunologic complaints Reports system reviewed and no additional complaints, except as documented and Reports Abnormal speech present [facility] Past Medical History Medical History Depression PTSD (post-traumatic stress disorder) Anxiety Social History Social History Alcohol intake: former Smoked in Last 30 Days: No Use of substances other than those prescribed or required for medical reasons: No Advance Directives: No Advance Directives Information Provided: Yes Do you have a plan to hurt others: No Plan Patient : No Physical Exam 2 Vital Signs: Vital Signs: Last Vital Signs Temp 98.1 F 03/30/25 20:07 Pulse 111 H 03/30/25 20:07 Resp 22 H 03/30/25 20:07 BP 119/80 03/30/25 20:07 Pulse Ox 99 03/30/25 20:07 O2 Del Method Room Air 03/30/25 20:07 BMI result Body Mass Index 30.5 Vital signs have been reviewed and appear to be correct. Blood pressure elevated. Heart rate normal. Respiratory rate normal. Temperature normal. Oxygen saturation normal. Appearance: Alert. Oriented X3. No acute distress. Head: Normal external exam. Normocephalic. Atraumatic. No Mauricio signs noted. No raccoon eyes noted Eyes: PERRLA. EOMI. Conjunctiva and sclera normal. Eyelids normal. ENT: TM's Normal. Pharynx normal. Uvula midline. Moist mucous membranes. No trismus noted. No drooling noted. No muffled voice noted. Neck: Normal inspection. Neck supple. FROM. No adenopathy. Thyroid Normal. No meningeal signs. No neck mass noted. CVS: Normal heart rate and rhythm. Heart sound normal. No murmurs noted. Pulses normal throughout. Respiratory: No respiratory distress. Painless inspiration. Breath sounds normal. No wheezes/rales/rhonchi noted. Chest nontender. No accessory muscle usage noted or decreased air movement noted. Abdomen: Soft and nontender. Bowel sounds normal in all 4 quadrants. No distention noted. No organomegaly noted. No visible injury noted. Back: No CVA tenderness. Full range of motion noted. Skin: Skin warm and dry. Normal skin color. Normal skin turgor. No rashes/lesions/lacerations noted. Extremities: No lower extremity edema. Extremities exhibit normal range of motion. Extremities nontender. Neuro: Oriented X 3. Cranial nerve exam: II-XII are grossly intact No motor deficit. No sensory deficit. Reflexes normal. Course Course Course Narrative: This is an RME: Additional HPI, ROS, PE not included below will be deferred to primary provider. RME assessment and note performed by: Carole Smith PA-C This is a [id number], with a hx of DM2, anxiety, and PTSD who presents to the ER with complaints of abdominal pain, nausea, and diarrhea. Reports monday (4 days ago), she drank back cold brew coffee and believes she had food poisoning. Reports she then developed body aches, chills, sore throat. Reports stomach pain, nausea and diarrhea, no vomiting. Reports that she has had severe cramps after eating. No bloody or black stool. Called poison control and was told to go to the emergency room which made her very anxious. Patient was diaphoretic, reports that she was very anxious. Abdomen is soft, with no discernible tenderness. Patient reports that she has had no specific location of her pain however pain throughout her gut. Pulse 111, she is afebrile. No recent travel, or antibiotic use. 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 Plan: labs, ekg, stool sample, ua Reevaluation(s) Reevaluation #1: Strep pharyngitis, abdominal pain. Start Augmentin b.i.d., patient will take 2 days off since work with children to avoid spreading the disease. Instructed to use face mask at all times and frequent hand washes. CT of the abdomen pelvis is unremarkable for acute intra-abdominal pathology. Time: 23:36 Medications Administered Discontinued Medications Generic Name Dose Route Start Last Admin Trade Name Freq PRN Reason Stop Dose Admin Al Hydroxide/Mg Hydroxide 30 ml 03/30/25 21:50 03/30/25 22:05 Magnesium Hydrox/Alum Hydrox 30 Ml Oral.Susp PO 03/30/25 21:51 30 ml ONCE ONE Administration Amoxicillin/Clavulanate Potassium 875 mg 03/30/25 21:50 03/30/25 22:05 Amoxicillin/Potassium Clav 875 Mg Tablet PO 03/30/25 21:51 875 mg ONCE ONE Administration Famotidine 20 mg 03/30/25 21:50 03/30/25 22:05 Famotidine/Pf 20 Mg/2 Ml Vial IVPUSH 03/30/25 21:51 20 mg ONCE ONE Administration Lactated Ringer's 1,000 mls @ 999 mls/hr 03/30/25 22:00 03/30/25 22:57 Lr IV 03/30/25 23:00 Infused .Q1H1M CARLYN Infusion Ondansetron HCl 4 mg 03/30/25 21:50 03/30/25 22:05 Ondansetron Hcl 4 Mg/2 Ml Vial IVPUSH 03/30/25 21:51 4 mg ONCE ONE Administration Medical Decision Making Differential Diagnosis Differential Diagnoses: The differential diagnosis associated with the presentation includes ( Severe anemia, electrolyte derangement, TOMÁS, , UTI, viral upper respiratory infection, strep pharyngitis.) Admission/Observation Consideration of admission/observation: Escalation of care including admission/observation considered Lab Data MDM Lab Attestation statement: I reviewed the patient's lab results. 03/30/25 20:37 03/30/25 20:37 Labs: Lab Results 03/30/25 03/30/25 03/30/25 Range/Units 20:36 20:37 21:41 WBC 12.8 H (4.8-10.8) X10*3/uL RBC 4.75 (4.20-5.50) X10*6/uL Hgb 14.1 (12.0-16.0) g/dl Hct 40.7 (37.0-47.0) % MCV 85.7 (80.0-98.0) fL MCH 29.7 (27.0-33.0) pg MCHC 34.6 (31.0-35.0) g/dl RDW 13.1 (11.0-16.0) % Plt Count 436 H D (160-400) X10*3/uL MPV 8.4 L (9.4-12.3) fL Immature Gran % (Auto) 0.2 (0.0-0.4) % Neut % (Auto) 70.6 (45-73) % Lymph % (Auto) 22.4 (20-40) % [place] % (Auto) 4.7 (2-11) % Eos % (Auto) 1.6 (0-4) % Baso % (Auto) 0.5 (0-2) % Lymph # (Auto) 2.9 (1.2-4.9) X10*3/uL [place] # (Auto) 0.6 (0.1-1.2) X10*3/uL Eos # (Auto) 0.2 (0.0-0.4) X10*3/uL Baso # (Auto) 0.1 (0.0-0.2) X10*3/uL Abs Immat Gran (auto) 0.03 (0.00-0.03) X10*3/uL Absolute Neuts (auto) 9.0 H (2.0-8.3) x10*3/uL Absolute Nucleated RBC 0.000 (0.0-0.012) X10*3/uL Nucleated RBC % (auto) 0.0 (0.0-0.2) /100WBC Sodium 137 (135-145) mmol/L Potassium 4.4 (3.3-5.1) mmol/L Chloride 105 (96-108) mmol/L Carbon Dioxide 22 (22-29) mmol/L Anion Gap 14 (12-20) BUN 17 H (9-16) mg/dL Creatinine 0.70 (0.5-1.4) mg/dL Estim Creat Clear Calc 142.4 Estimated GFR > 60 Random Glucose 93 (60-115) mg/dL Calcium 9.0 (8.4-10.2) mg/dL Magnesium 1.7 (1.6-2.6) mg/dL Total Bilirubin 0.2 (0.0-1.0) mg/dL Direct Bilirubin < 0.2 (0.0-0.5) mg/dL AST 15 (5-31) U/L ALT 17 (0-31) U/L Alkaline Phosphatase 58 (39-117) U/L Troponin I High Sens < 2.7 (<3.5-17.0) ng/L Total Protein 7.5 (6.5-8.0) g/dL Albumin 3.6 (3.5-5.0) g/dL Beta HCG, Quant < 2 mIU/mL Urine Color Yellow Urine Appearance Clear Urine pH 6.0 (5.0-9.0) Ur Specific [place] >= 1.030 H (1.005-1.025) Urine Protein Trace (Neg-Trace) mg/dL Urine Glucose (UA) Negative (Negative) mg/dL Urine Ketones Trace (Negative) mg/dL Urine Blood Negative (Negative) Urine Nitrite Negative (Negative) Ur Leukocyte Esterase Negative (Negative) Urine RBC 0-2 (0-2) /HPF Urine WBC 0-5 (0-5) /HPF Ur Squamous Epith Cells 6-10 (0-2) /HPF Calcium Oxalate Crystal Present Urine Bacteria 4+ (None Seen) Hyaline Casts 0-2 (0-2) /LPF Urine Test NEGATIVE (NEGATIVE) C. difficile Tox B Gene Cancelled Influenza Type A (PCR) NEGATIVE (Negative) Influenza Type B (PCR) NEGATIVE (Negative) RSV RNA Qual (PCR) NEGATIVE (Negative) SARS-CoV-2 RNA (RT-PCR) NEGATIVE (Negative) S. pyogenes GrpA ANKUSH Positive A (Negative) Independent Interpretation I performed an independent interpretation of an: CT Scan ( Abdomen and pelvis:. No obstructing stone in either kidney or either ureter. 2. Appendicolith present without acute appendicitis in this noncontrast study. 3. Wall thickening of the urinary bladder. 4. Severe stool burden. No small bowel obstruction. 3. Mild fluid in the mesentery is nonspecific.) Radiology Impression Discussion of test interpretation with radiology: I have reviewed the radiologist's reading. Discharge Plan Discharge Clinical Impression: Acute streptococcal pharyngitis Patient Disposition: Home, Self-Care Instructions: Strep Throat (ED) Prescriptions: New amoxicillin-pot clavulanate 875-125 mg tablet 1 tab PO BID Qty: 20 0RF No Action metformin 500 mg tablet 500 mg PO BID gabapentin 600 mg tablet 600 mg PO TID venlafaxine 150 mg capsule,extended release 24hr 150 mg PO DAILY lorazepam 1 mg tablet 1 mg PO TID Nortrel 0.5/35 (28) 0.5-35 mg-mcg tablet 1 tab PO DAILY mirtazapine 7.5 mg tablet 1 tab PO BEDTIME cyclobenzaprine 10 mg tablet 10 mg PO TID PRN (Reason: muscle spasm) Qty: 14 0RF ibuprofen 600 mg tablet 600 mg PO Q8H PRN (Reason: pain) Qty: 20 0RF lidocaine 5 % adhesive patch,medicated 1 patch topical DAILY Qty: 15 0RF Rx Instructions: leave on most painful area for up to 12 hrs Referrals: Blanka Hong PA-C [Primary Care Provider] - Print Language: [place] Citizen
[2025-03-30 20:07] VITALS: BP 119/80; PULSE 111; RESP 22; TEMP 36.7; O2SAT 99; BMI 30.5
--- NOTE | 2025-03-30 20:18 | ECG_ITS ---
Test Reason : TACHYCARDIA Blood Pressure : */* mmHG Vent. Rate : 109 BPM Atrial Rate : 109 BPM P-R Int : 132 ms QRS Dur : 74 ms QT Int : 314 ms P-R-T Axes : 73 62 51 degrees QTcB Int : 422 ms Sinus tachycardia Otherwise normal ECG No previous ECGs available Referred By: Carole Smith Electronically Signed By: NETTIE LOFTON
[2025-03-30 20:43] LABS: MANUAL DIFF FLAG NO
[2025-03-30 20:49] LABS: Basophils Absolute Auto 0.1 X10*3/uL (0.0-0.2); Basophils Percent Auto 0.5 % (0-2); Eosinophils Absolute Auto 0.2 X10*3/uL (0.0-0.4); Eosinophils Percent Auto 1.6 % (0-4); Hematocrit 40.7 % (37.0-47.0); Hemoglobin 14.1 g/dl (12.0-16.0); Imm Gran Abs Auto 0.03 X10*3/uL (0.00-0.03); Imm Gran Pct Auto 0.2 % (0.0-0.4); Lymphocytes Absolute Auto 2.9 X10*3/uL (1.2-4.9); Lymphocytes Percent Auto 22.4 % (20-40); Mean Corpuscular HGB Conc 34.6 g/dl (31.0-35.0); Mean Corpuscular Hemoglobin 29.7 pg (27.0-33.0); Mean Corpuscular Volume 85.7 fL (80.0-98.0); Mean Platelet Volume 8.4 fL (9.4-12.3); Monocytes Absolute Auto 0.6 X10*3/uL (0.1-1.2); Monocytes Percent Auto 4.7 % (2-11); Neutrophils Percent Auto 70.6 % (45-73); Platelet Count 436 X10*3/uL (160-400); Red Blood Count 4.75 X10*6/uL (4.20-5.50); Red Cell Distribution Width 13.1 % (11.0-16.0); White Blood Count 12.8 X10*3/uL (4.8-10.8)
[2025-03-30 20:59] LABS: Alanine Aminotransferase 17 U/L (0-31); Albumin Level 3.6 g/dL (3.5-5.0); Alkaline Phosphatase 58 U/L (39-117); Anion Gap 14 (12-20); Aspartate Amino Transferase 15 U/L (5-31); Bilirubin Direct < 0.2 mg/dL (0.0-0.5); Bilirubin Total 0.2 mg/dL (0.0-1.0); Blood Urea Nitrogen 17 mg/dL (9-16); Carbon Dioxide 22 mmol/L (22-29); Chloride 105 mmol/L (96-108); Creatinine Clr Calc Pharmacy 142.4; Estimated Glomerular Filt Rate > 60; Glucose Random 93 mg/dL (60-115); IDNOW Serial# 6674DD1D; Magnesium 1.7 mg/dL (1.6-2.6); Potassium 4.4 mmol/L (3.3-5.1); Sodium 137 mmol/L (135-145); Strep A Nucleic Acid Positive (Negative); Total Protein 7.5 g/dL (6.5-8.0)
[2025-03-30 21:07] LABS: HCG Quantitative < 2 mIU/mL
[2025-03-30 21:07] LABS: Troponin-I High Sensitivity < 2.7 ng/L (<3.5-17.0)
[2025-03-30 21:21] LABS: Influenza A PCR NEGATIVE (Negative); Influenza B PCR NEGATIVE (Negative); Resp Syncy Virus RNA Qual PCR NEGATIVE (Negative); SARS COV2 PCR INHOUSE NEGATIVE (Negative)
[2025-03-30 21:57] LABS: Appearance Urine Clear; Color Urine Yellow; Glucose Urine UA Negative (Negative); Leukocyte Esterase Urine Negative (Negative); Nitrite Urine Negative (Negative); Specific Gravity - Urine >= 1.030 (1.005-1.025); Urine Blood Negative (Negative); Urine Ketones Trace mg/dL (Negative); Urine Protein Trace mg/dL (Neg-Trace)
[2025-03-30 22:03] LABS: UPreg QC Valid YES; Urine Pregnancy NEGATIVE (NEGATIVE)
[2025-03-30] MEDS: Amoxicillin/Potassium Clav 875 MG TABLET PO (22:05)
[2025-03-30] MEDS: ondansetron HCL 4 MG/2 ML VIAL IVPUSH (22:05)
[2025-03-30] MEDS: Magnesium Hydrox/Alum Hydrox 30 ML ORAL.SUSP PO (22:05)
[2025-03-30] MEDS: Famotidine/PF 20 MG/2 ML VIAL IVPUSH (22:05)
[2025-03-30] MEDS: Lactated Ringers 1,000 ML 999 ML IV (22:08)
[2025-03-30 22:11] LABS: Bacteria Urine 4+ (None Seen); Calcium Oxalate Crystals Urine Present; Hyaline Casts Urine 0-2 /LPF (0-2); RBC Urine 0-2 /HPF (0-2); WBC Urine 0-5 /HPF (0-5)
--- NOTE | 2025-03-30 22:16 | PC.NURSE ---
pt a&ox4, respirations even and unlabored. pt report sore throat, nausea, vomiting and diarrhea x3 days. 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 pt reports she has chronic back pain but the abdominal pain is making it worse. 20G placed in right ac, vss. pt medicated per jan.
--- NOTE | 2025-03-30 22:57 | PC.NURSE ---
pt given crackers and drink for po challenge, pt tolerating well
[2025-03-30 23:39] VITALS: BP 122/79; PULSE 108; RESP 16; TEMP 36.7; O2SAT 97
[2025-03-30 23:49] VITALS: BP 122/79; PULSE 108; RESP 16; TEMP 36.7; O2SAT 97
[2025-03-31 12:15] LABS: Adenovirus F 40/41 Not Detected (Not Detect.); Astrovirus Not Detected (Not Detect.); Campylobacter Not Detected (Not Detect.); Cryptosporidium Not Detected (Not Detect.); Cyclospora cayetanensis Not Detected (Not Detect.); E. coli EAEC Not Detected (Not Detect.); E. coli EPEC Not Detected (Not Detect.); E. coli ETEC Not Detected (Not Detect.); E. coli STEC Not Detected (Not Detect.); Entamoeba histolytica Not Detected (Not Detect.); Giardia lamblia Not Detected (Not Detect.); Norovirus GI/GII Not Detected (Not Detect.); Plesiomonas shigelloides Not Detected (Not Detect.); Rotavirus A Not Detected (Not Detect.); Salmonella Not Detected (Not Detect.); Sapovirus Not Detected (Not Detect.); Shigella sp./EIEC Not Detected (Not Detect.); Vibrio Not Detected (Not Detect.); Vibrio Cholerae Not Detected (Not Detect.); Yersinia enterocolitica Not Detected (Not Detect.)
== END 2025-03-30 23:49 | disposition home or self-care (01) ==
PROVIDERS: Physician Assistant Medical; Emergency Provider Emergency Medicine
DX: J02.0 Streptococcal pharyngitis (principal); R00.0 Tachycardia, unspecified; M79.10 Myalgia, unspecified site; R50.9 Fever, unspecified; R11.2 Nausea with vomiting, unspecified; R10.2 Pelvic and perineal pain; Z79.899 Other long term (current) drug therapy; Z03.818 Encounter for observation for suspected exposure to other biological agents ruled out
CPT/HCPCS: 0241U; 36415; 74176; 80048; 80076; 81001; 81025; 83735; 84484; 84702; 85025; 87507; 87651; 93005; 99285; J1308; J2405; J7120

== ENCOUNTER → 2025-03-30 20:18 | Outpatient (BNV) | payer OTHER, SELFPAY | PROVIDERS: Emergency Provider Emergency Medicine; Visit Provider Internal Medicine | DX: R00.0 Tachycardia, unspecified (principal) | CPT/HCPCS: 93010 ==

== ENCOUNTER → 2025-03-30 21:50 | Outpatient (BNV) | payer OTHER, SELFPAY | PROVIDERS: Emergency Provider Emergency Medicine; Visit Provider Radiology Neuroradiology | DX: K38.1 Appendicular concretions (principal); N32.89 Other specified disorders of bladder; K56.41 Fecal impaction | CPT/HCPCS: 74176 ==

== ENCOUNTER 2025-08-28 09:31 | Outpatient (AMB) | payer OTHER, SELFPAY ==
[2025-08-28 09:38] VITALS: BP 128/90; PULSE 103; TEMP 36.1; O2SAT 98; BMI 32.9
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
--- OUTSIDE RECORDS SUMMARY | 2025-08-28 10:33 | XMS_ITS | Patient Health Record ---
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 every day How many cigarettes a day do you smoke? 21-30 How soon after you wake up d o you smoke your first cigarette? within 5 minutes Are you interested in quitting? Thinking about q uitting Additional Findings: Tobacco User Heavy cigarett e smoker (20-39 cigs/day) Alcohol Screen (Audit-C) Question Answer Notes Did you have a drink contain ing alcohol in the past year? Yes How often did you have a dri nk containing alcohol in the past year? 4 or more times a week (4 points) How many drinks did you have on a typical day when you were drinking in the past year? 7 to 9 drinks (3 points) How often did you have 6 or more drinks on one occasion in the past year? Daily or almost daily (4 points) Points 11 Problems Problem Type SNOMED Code ICD Code Onset Dates Problem Status W/U Status Risk Notes Problem Tobacco abuse (1026321101) Tobacco abuse (Z72.0) Active confirmed Problem Alcoholism (2192388) Alcoholism (F10.20) Active confirmed Plan Of Treatment Future Test Test Name Order Date HIV 1/2 ANTIGEN/ANTIBODY,FOURTH GENERATI ON W/RFL 06/13/2018 RPR (DX) W/REFL TITER AND CONFIRMATORY T ESTING 06/13/2018 HEPATITIS B SURFACE ANTIGEN W/REFL CONFI RM 06/13/2018 HEPATITIS C AB W/REFL TO HCV RNA, QN, PC R 06/13/2018 HSV 1 IGG, TYPE SPECIFIC AB HERPESELECT 06/13/2018 HSV 2 IGG, TYPE SPECIFIC AB HERPESELECT 06/13/2018 Insurance Providers Payer Name Payer Address Payer Phone Subscriber Number Group Number Insured Name Patient Relationship to Insured Coverage Start Date Coverage End Date [facility] [address] [place] [address] [phone] [id number] Inge Doyle Self - patient is the insured Medical (General) History Medical History History ICD Code alcoholism
[2025-08-28 10:42] VITALS: BP 122/84
== END 2025-08-28 10:49 | disposition home or self-care (01) ==
LOC: HO.HMCH 09:32
DX: E28.2 Polycystic ovarian syndrome (principal); F41.9 Anxiety disorder, unspecified; F43.10 Post-traumatic stress disorder, unspecified; E16.2 Hypoglycemia, unspecified; F32.9 Major depressive disorder, single episode, unspecified; E66.9 Obesity, unspecified; Z78.9 Other specified health status; K59.00 Constipation, unspecified; E61.1 Iron deficiency; M51.9 Unspecified thoracic, thoracolumbar and lumbosacral intervertebral disc disorder

== ENCOUNTER → 2025-08-28 09:31 | Outpatient (BNVA) | payer OTHER, SELFPAY | DX: E28.2 Polycystic ovarian syndrome (principal); M51.9 Unspecified thoracic, thoracolumbar and lumbosacral intervertebral disc disorder; F41.9 Anxiety disorder, unspecified; F43.10 Post-traumatic stress disorder, unspecified; F32.9 Major depressive disorder, single episode, unspecified; E61.1 Iron deficiency; E16.2 Hypoglycemia, unspecified; E66.9 Obesity, unspecified; Z78.9 Other specified health status; K59.00 Constipation, unspecified; E11.65 Type 2 diabetes mellitus with hyperglycemia; Z68.32 Body mass index [BMI] 32.0-32.9, adult | CPT/HCPCS: 96127; 99202 ==

== ENCOUNTER 2025-10-29 15:50 | Outpatient (AMB) | payer OTHER, SELFPAY ==
[2025-10-29 15:58] VITALS: BP 116/74; PULSE 102; O2SAT 98; BMI 34.3
--- NOTE | 2025-10-29 15:58 | A.OFFVIS_ITS ---
Vital Signs 10/29/25 15:58 Height 5 ft 8 in Weight 225 lb 8.526 oz BMI 34.3 BP 116/74 Blood Pressure Location Rt brachial Position Sitting Pulse 102 H Pulse Source Pulse Oximeter Pulse Oximetry (%) 98 Oxygen Delivery Method Room Air Intake Visit Reasons: PCOS, Hypoglycemia Intake Note: New patient present today for PCOS, Hypoglycemia. Patient reports she is on Metformin and it tends to lower her glucose, states she does get dizzy and is not checking glucose levels due to meter costing over $200. Patient reports she has been dieting and exercising and continues to gain weight and is this has been causing her a lot of stress and depression. Immigration Investigator Required: No Accompanied by: Self / Same As Patient Allergies No Known Allergies Allergy (Verified 10/29/25 16:00) Medication List - Last Reconciled 10/29/25 by Sly Mariscal MD blood sugar diagnostic (Freestyle [employer]su[employer] Test Strips) As directed; to check sugars daily blood-glucose meter (Freestyle Insu[employer] meter) As directed; to check sugars daily cyclobenzaprine 10 mg PO BID PRN gabapentin 600 mg PO TID hydroxyzine HCl 50 mg PO TID lancets (FreeStyle Lancets) As directed; to check sugars daily lidocaine 5% 1 patch topical DAILY lorazepam 1 mg PO TID metformin 500 mg PO DAILY norethindrone-ethin estradiol 0.5-35 mg-mcg (Nortrel) 1 tab PO DAILY venlafaxine ER 150 mg PO DAILY HPI Comments Details: 25 YO Female who is seen in consultation at the request of her PCP for PCOS. She was also sent for possible hypoglycemia Had US with cysts Menarche was age 14 . Menses have been irregular. Regule menses on BCP OCP use: Y Metformin use: Y- in 2021 Weight gain: in past yr gained 40 lbs Hirsutism/hyperandrogenism: No Trying to conceive/clomiphene: No Ovarian U/S: Yes T2DM or acanthosis: had hyperglycemia No hypoglycemia overnight . No serum glucose during hypoglycemia . No relationship to food Labs: [facility] Medical History COVID-19 Depression PTSD (post-traumatic stress disorder) Anxiety Surgical History No pertinent past surgical history Family History Father Hypertension Diabetes Mental health disorder Substance abuse Mother Hypertension Mental health disorder Substance abuse Social History Household Members: None Housing: Apartment Alcohol intake: former Patient Tobacco Use Status: Former Tobacco user Cigarettes Per Day: 20 Years Smoked: 5 e-Cigarette/Vaping Use: Currently Using service: No Current occupational status: employed and student 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 There are no thyroid nodules palpated. There was the of hair growth on. There was the absence of acanthosis nigricans Assessment & Plan Assessment & Plan (1) PCOS (polycystic ovarian syndrome): Code(s): E28.2 - Polycystic ovarian syndrome Category: Medical Plan: This is a 25-year-old female reported history of polycystic ovarian syndrome. We will rule out [place] syndrome Plan is to check testosterone, DHEA-S, 17 hydroxy progesterone. We will also check 24 hour urine for free cortisol and creatinine. We will also check a 2 hour postprandial glucose and HbA1c.. If above is consistent with polycystic ovarian syndrome, did talk to patient about starting a G LP 1 like Zepbound or Mounjaro if patient has diabetes if insurance will cover. Also made an appointment with a principal statistical scientist (2) Hypoglycemia: Code(s): E16.2 - Hypoglycemia, unspecified Category: Medical Plan: We will need to satisfy Whipple's triad. Gave patient a continuous glucose sensor Nelson 3+ so that she can see if her symptoms correlate with low blood sugar. If they do, we will then send patient to lab to get further workup when hypoglycemia occurs Orders: Orders Testosterone, Total Today E28.2 - Polycystic ovarian syndrome 17 Hydroxyprogesterone Today E28.2 - Polycystic ovarian syndrome DHEA Sulfate Today E28.2 - Polycystic ovarian syndrome TSH reflex Free T4 Today Z13.29 - Encounter for screening for other suspected endocrine disorder Cortisol, Free 24Hr Urine Today E28.2 - Polycystic ovarian syndrome Creatinine, 24 Hr Group Today E28.2 - Polycystic ovarian syndrome Glucose Random Today E28.2 - Polycystic ovarian syndrome Hemoglobin A1c Today E11.65 - Type 2 diabetes mellitus with hyperglycemia, E28.2 - Polycystic ovarian syndrome Referrals Nutrition/Dietitian Referral E16.2 - Hypoglycemia, unspecified Coding Level of Care Code New Pt Level 4 (41330) Diagnoses PCOS (polycystic ovarian syndrome) E28.2 Hypoglycemia E16.2
--- OUTSIDE RECORDS SUMMARY | 2025-10-29 18:42 | XMS_ITS | Patient Health Record ---
Author Organization [employer] [facility] yesenia Belle Address [address] [place] [address] Care Team Providers Care Robot Technician Name Role Phone Marsha Wadsworth Primary Care Provider Toni RAMOSNICOLÁSJASON Unavailable [phone] Reason For Referral No Information Medications Medication SIG (Take, Route, Frequency, Duration) Notes Start Date End Date Status Depo-Provera 150 MG/ML Suspension 1 ml Intramuscular Active Social History Tobacco Use: Social History Observation Description Date Details (start date - stop date) Current Smoker NA - NA Social History Drugs/Alcohol: Social Info Question Answer Notes Alcohol Screen (Audit-C) Did you have a drink containing alcohol in the past year? Yes How often did you have a drink containing alcohol in the past year? 4 or more times a week (4 points) How many drinks did you have on a typical day when you were drinking in the past year? 7 to 9 drinks (3 points) How often did you have 6 or more drinks on one occasion in the past year? Daily or almost daily (4 points) Points 11 Tobacco Use: Social Info Question Answer Notes Tobacco Use/Smoking Are you a current smoker How often do you smoke cigarettes? every day How many cigarettes a day do you smoke? 21-30 How soon after you wake up do you smoke your first cigarette? within 5 minutes Are you interested in quitting? 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
== END 2025-10-29 16:51 | disposition home or self-care (01) ==
LOC: HO.ENCR 15:51
PROVIDERS: Visit Provider Internal Medicine Endocrinology, Diabetes & Metabolism
DX: E28.2 Polycystic ovarian syndrome (principal); E16.2 Hypoglycemia, unspecified
CPT/HCPCS: 99204

== ENCOUNTER → 2025-10-29 15:50 | Outpatient (BNVA) | payer OTHER, SELFPAY | PROVIDERS: Visit Provider Internal Medicine Endocrinology, Diabetes & Metabolism | DX: E28.2 Polycystic ovarian syndrome (principal); E16.2 Hypoglycemia, unspecified | CPT/HCPCS: 99202 ==

== ENCOUNTER 2025-11-04 15:57 | Outpatient (AMB) | payer OTHER, SELFPAY ==
--- OUTSIDE RECORDS SUMMARY | 2025-11-03 23:59 | XMS_ITS | Continuity of Care Document ---
Author Organization [facility] Address [address] [place] [address]- Care Team Providers Care Choirmaster Name Role Phone Renée Marques Primary Care Physician Encounter [facility] [id number] Date(s): 10/04/25 - 11/03/25 [facility] Adult [address] [place] [address]- Encounter Type: Triage Allergies, Adverse Reactions, Alerts No Known Medication Allergies Immunizations Given and Recorded Vaccine Date Status Refusal Reason tetanus/diphtheria/pertussis, acel(Tdap) 02/16/22 Given SARS-CoV-2 (COVID-19) mRNA BNT-162b2 vac 05/27/21 Recorded SARS-CoV-2 (COVID-19) mRNA BNT-162b2 vac 05/05/21 Recorded Human Papillomavirus Vaccine 07/13/16 Recorded Medications Ativan 1 mg oral tablet 1 tablet = 1 mg, By Mouth, 2 times a day, PRN as needed for anxiety, 0 Refills, Maintenance, 06/22/21 10:15:00 AM EDT, Tablet, Partial fill upon patient request if the prescription is for a schedule II opioid drug. Start Date: 06/22/21 Status: Ordered Medication Dispense Status: Completed Total Allowed Fills: 1 Fills Dispensed: 0 gabapentin 400 mg oral capsule 400 mg, 1, capsule, By Mouth, 3 times a day, # 30 capsule, Refills 0, Maintenance, 03/08/21 3:02:00 PM EDT, Partial fill upon patient request if the prescription is for a schedule II opioid drug. Start Date: 03/08/21 Status: Ordered Medication Dispense Status: Completed Quantity: 30.0 Unit: capsule Total Allowed Fills: 1 Fills Dispensed: 0 metFORMIN 500 mg oral tablet 1 tablet, By Mouth, 2 times a day, # 180 tablet, 3 Refills, Maintenance, 10/12/25 6:39:00 AM EST, [facility] [id number], 172.5, cm, 01/30/24 10:04:00 EST, Height Start Date: 10/12/25 Status: Ordered Medication Dispense Status: Completed Quantity: 180.0 Unit: tablet Total Allowed Fills: 1 Fills Dispensed: 0 venlafaxine 150 mg oral capsule, extended release 150 mg, 1, capsule, By Mouth, Daily, # 30 capsule, Refills 0, Maintenance, 03/08/21 3:01:00 PM EDT, Partial fill upon patient request if the prescription is for a schedule II opioid drug. Start Date: 03/08/21 Status: Ordered Medication Dispense Status: Completed Quantity: 30.0 Unit: capsule Total Allowed Fills: 1 Fills Dispensed: 0 Elli oral tablet 1 tablet, By Mouth, Daily, # 28 tablet, 11 Refills, Maintenance, 09/01/25 9:19:00 AM EDT, [facility] 28, TAKE 1 TABLET BY MOUTH DAILY, 172.5, cm, 01/30/24 10:04:00 EST, Height Start Date: 09/01/25 Status: Ordered Medication Dispense Status: Completed Quantity: 28.0 Unit: tablet Total Allowed Fills: 1 Fills Dispensed: 0 Problem List Condition Confirmation Course Effective Dates Status Health St atus Informant Anxiety Confirmed Active Chronic upper back pain Confirmed Active Depressive disorder Confirmed Active Dysuria Confirmed Active History of alcohol abuse Confirmed Active History of hypotension Confirmed Active History of substance abuse Confirmed Active Hypoglycemia 1 Confirmed Active Iron overload Confirmed Active Annual physical exam Confirmed Active PCOS (polycystic ovarian syndrome) Confirmed Active PTSD (post-traumatic stress disorder) Confirmed Active Prediabetes Confirmed Active Raynaud's syndrome Confirmed Active Major depressive disorder, recurrent Confirmed Active Smoker Confirmed Active Syncopal episodes Confirmed Active Syphilis Confirmed Active 1Pt reported Social History Social History Type Response Tobacco Use: 4 or less cigar ettes(less than 1/4 pack)/day in last 30 days. Sexual Orientation Self described orien tation: ; Straight or heterosexual Sex Sex Representation Female (finding) Patient Care team information Care Team Personnel Name: Renée Marques Position: S PCO Associate Professional Member Role: PCP [address]: [address] [place] [id number]- [place] Telecom: Care Team Related Persons Name: JASPER HDZ Name: JASPER HDZ Insurance Providers Guarantor name: CECILIA HDZ Health Plan Information #: 1 Payer: SELF PAY Payer Identifier: NA Member Number: NA Group Number: NA Subscriber Identifier: NA Relationship to Subscriber: self Coverage Type: Self-pay (Includes applicants for insurance and Medicaid applicants) Coverage Verification Date: NA Telecom: NA Address:
--- NOTE | 2025-11-04 16:07 | A.OFFPC_ITS ---
Vital Signs 3 11/04/25 16:09 Height 5 ft 8 in Weight 227 lb BMI 34.5 BP 106/66 Blood Pressure Location Lt brachial Position Sitting Respiration 18 Pulse 112 H Pulse Source Pulse Oximeter Temp 97.6 F Temp Source Temporal Artery Scan Pulse Oximetry (%) 98 Oxygen Delivery Method Room Air Intake Visit Reasons: Annual Exam Group Underwriter Required: No Accompanied by: Self / Same As Patient Allergies No Known Allergies Allergy (Verified 11/04/25 16:20) Medication List - Last Reconciled 11/04/25 by Blanka Hong PA-C blood sugar diagnostic (Freestyle InsuLinx Test Strips) As directed; to check sugars daily blood-glucose meter (Freestyle InsuLinx meter) As directed; to check sugars daily cyclobenzaprine 10 mg PO BID PRN gabapentin 800 mg PO TID hydroxyzine HCl 50 mg PO TID PRN lancets (FreeStyle Lancets) As directed; to check sugars daily lidocaine 5% 1 patch topical DAILY lorazepam 1 mg PO TID metformin 500 mg PO DAILY norethindrone-ethin estradiol 0.5-35 mg-mcg (Nortrel) 1 tab PO DAILY venlafaxine ER 150 mg PO DAILY Tobacco use date assessed: 08/28/25 Dental Screening Dental Screen Date: 08/28/25 HPI Annual Exam 2 HPI0 Details 25 year old female with past medical his tory of depression, anxiety, PTSD, PCOS last seen 08/2025 coming in for annual exam. In review of the notes, patient was seen by endocrinology 10/2025 ruling out Kenn syndrome and labs were ordered consider GLP 1. Presenting for follow-up on Polycystic Ovary Syndrome (PCOS) and evaluation of other health concerns. She has a history of PCOS, which was officially diagnosed years ago after an ultrasound at a specialist's office in [place], though she does not recall the specialist's name. She recently saw an patient relations manager who suggested a workup for Goldsmith's syndrome as a possible differential diagnosis for her symptoms, which overlap with PCOS, including hormonal imbalances, insulin resistance, and weight gain. The patient relations manager discussed GLP-1s, but coverage would depend on comorbidities such as sleep apnea or diabetes. The patient reports symptoms suggestive of a urinary tract infection, including pressure in her stomach and the sensation of having to push to urinate, though without burning. She has a history of frequent UTIs, which she associates with a past history of alcoholism and dehydration. She also mentions having pain with wiping after using the bathroom and does have a history of cysts in the groin area. In terms of mental health, the patient reports feeling depressed, anxious, and stressed, with a recent heart rate of 121 bpm. She had a panic attack in August with a heart rate of 116 bpm while sitting down. Recent stressors include a breakup with an on-and-off partner and an argument with a coworker, leading to social isolation. She sees a psychiatrist every three months but finds the sessions unhelpful as the psychiatrist only offers to adjust medication without further discussion. pap smear: referral was placed at last visit vaccines: [facility] Medical History COVID-19 Depression PTSD (post-traumatic stress disorder) Anxiety Surgical History No pertinent past surgical history Family History Father Hypertension Diabetes Mental health disorder Substance abuse Mother Hypertension Mental health disorder Substance abuse Social History Household Members: None Housing: Apartment Alcohol intake: former Patient Tobacco Use Status: Former Tobacco user Cigarettes Per Day: 20 Years Smoked: 5 e-Cigarette/Vaping Use: Currently Using service: No Current occupational status: employed and student 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, [employer] Cognitive needs: No Hearing needs: No Vision needs: Yes Questionnaire Thrive Questionnaire Date Thrive assessed: 08/28/25 I am a: Patient What is your living situation today?: I have a steady place to live Within the past 12 months, did the food you bought not last and you didn't have the money to get more?: Often true Within the past 12 months, did you worry whether your food would run out before you got money to buy more?: Often true Do you have trouble paying for medicines?: No Do you have trouble getting transportation to medical appointments?: No Do you have trouble paying your heating and electricity bill?: No Do you have trouble taking care of your child, family member or friend?: No Do you have trouble with day-to-day activities such as bathing, preparing meals, shopping, managing finances, etc.?: No Are you currently unemployed and looking for a job?: No Are you interested in more education?: Yes Please select the resources that you would like help with: None THRIVE Score: 2 RANI-7 AMB Questionnaire RANI-7 Date RANI - 7 assessed: 08/28/25 Source: Developed by Drs. Sly Aguirre, Elizabeth Isbell, John Alston and colleagues, with an educational scott from [employer]. Review of Systems Const Denies body aches, Denies chills, Denies fever(s), Denies headache(s) and Denies poor appetite Eyes Reports no additional complaints ENT Denies dysphagia, Denies dizziness, Denies headache(s) and Denies odynophagia Card Denies chest pain, Denies syncope, Denies edema, Denies irregular heart rhythm, Denies lightheadedness and Denies dyspnea Resp Denies cough and Denies dyspnea GI Denies abdominal pain, Denies constipation, Denies dysphagia, Denies diarrhea, Denies nausea, Denies odynophagia and Denies vomiting Reports no additional complaints Musc Reports no additional complaints and Denies abnormal gait Skin/Breast Reports system reviewed and no additional complaints, except as documented Neuro Denies abnormal gait, Denies dizziness, Denies syncope and Denies headache(s) Psych Reports no additional complaints Physical exam (Primary Care) Vital Signs: Last Vital Signs Temp 97.6 F 11/04/25 16:09 Pulse 112 H 11/04/25 16:09 Resp 18 11/04/25 16:09 BP 106/66 11/04/25 16:09 Pulse Ox 98 11/04/25 16:09 Oxygen Delivery Method Room Air 11/04/25 16:09 BMI result Body Mass Index 34.5 Tobacco/Smoking Status: Tobacco use Status Tobacco use date assessed 08/28/25 11/04/25 16:15 Patient Tobacco Use Status Former Tobacco user 11/04/25 16:15 e-Cigarette/Vaping Use Currently Using 11/04/25 16:15 Thrive Assessment: Date of Thrive Assessment Date Thrive assessed 08/28/25 11/04/25 16:15 Const General: cooperative, healthy appearing, comfortable and no acute distress Orientation/consciousness: patient oriented x3 HENMT Head: Yes normocephalic Ears: hearing grossly normal bilaterally General nose exam: Normal external nose present Face and sinus: Yes normal facial exam and Yes sinuses nontender Mouth: Normal oral and palatal mucosa present and tongue normal Throat: Yes posterior oropharynx normal Eyes General: appearance normal, both eyes and all related structures Conjunctivae: conjunctivae normal Pupils: Equal, round and reactive pupils present EOM: EOMs intact bilaterally and No Nystagmus present Neck Neck: Yes full ROM and Yes no lymphadenopathy Chest Chest palpation & inspection: normal inspection of the chest Resp Effort & Inspection: normal respiratory effort Auscultation: clear to auscultation bilaterally, no crackles, no rales, no rhonchi and no wheezes Cardio Rate: regular rate Rhythm: regular rhythm Peripheral pulses: radial pulses present and dorsalis pedis present GI Inspection: Yes normal to inspection and No Abdominal wall edema Palpation (GI): Soft to palpation, not firm and nontender Auscultation: normal bowel sounds Rectal Exam - Female: deferred Other: Edger Technician was offered but declined by patient General: Yes no CVA tenderness Female genitals images: 2 1. tender non fluctuant bump with raw skin on top without drainage or evidence of infection 2. tender non fluctuant bump Back/Spine/Pelvis Back: no CVA tenderness Skin General skin exam: no rashes or lesions noted Neuro General: patient oriented x3 Cranial nerves: Yes Equal, round and reactive pupils present, Yes Midline tongue present, Yes Ability to bilaterally elevate shoulders present and No Nystagmus present Gait exam (Neuro): Normal gait present Extrem General: Yes normal to inspection, Yes full ROM and No edema Psych Speech and movement: Normal speech and movement present Affect: normal affect Attitude: cooperative Insight: Good insight present (Psych) Judgement: Good judgement present (Psych) Results AMB Urinalysis, Automated 2 UA Leukoctes 0 Zachariah/uL Last Edit by KATHIE Padron on 11/04/25 17:11 UA Nitrite Negative Last Edit by KATHIE Padron on 11/04/25 17:11 UA Urobilinogen 0 mg/dL Last Edit by KATHIE Padron on 11/04/25 17:11 UA Protein 0 mg/dL Last Edit by KATHIE Padron on 11/04/25 17:11 UA pH 7.0 Last Edit by ESTEE PadronA on 11/04/25 17:11 UA Blood 0 Federico/uL Last Edit by ESTEE PadronA on 11/04/25 17:11 UA Specific [place] 1.015 Last Edit by ESTEE PadronA on 11/04/25 17: 11 UA Ketone Negative Last Edit by KATHIE Padron on 11/04/25 17:11 UA Bilirubin 0 mg/dL Last Edit by ESTEE PadronA on 11/04/25 17:11 UA Glucose 0 mg/dL Last Edit by KATHIE Padron on 11/04/25 17:11 Results Reviewed Results Reviewed: Laboratory Last Values Urine pH (Auto) 7.0 11/04/25 17:03 Specific [place] (Auto) 1.015 11/04/25 17:03 Urine Protein (Auto) 0 mg/dL 11/04/25 17:03 Glucose (UA)(Auto) 0 mg/dL 11/04/25 17:03 Urine Ketones (Auto) Negative 11/04/25 17:03 Urine Blood (Auto) 0 Federico/uL 11/04/25 17:03 Urine Nitrite (Auto) Negative 11/04/25 17:03 Urine Bilirubin (Auto) 0 mg/dL 11/04/25 17:03 Urine Urobilinogen (Auto) 0 mg/dL 11/04/25 17:03 Leukocyte Esterase (Auto) 0 Zachariah/uL 11/04/25 17:03 Coding Level of Care Code Est Pt Prev Care 18-39y(42527) Diagnoses Annual physical exam Z00.00 Anxiety F41.9 PTSD (post-traumatic stress disorder) F43.10 Depression F32.9 PCOS (polycystic ovarian syndrome) E28.2 Disorder of intervertebral disc of thoracic spine M51.9 Hypoglycemia E16.2 Obesity (BMI 30-39.9) E66.9 Constipation K59.00 Pelvic pain R10.20 Vulvar lesion N90.89 Assessment & Plan Assessment & Plan (1) Annual physical exam: Code(s): Z00.00 - Encounter for general adult medical examination without abnormal findings Category: Medical Plan: Patient is overdue for Pap smear and referral was placed to gynecology at last visit. Otherwise she is up-to-date on all recommended routine screenings and vaccinations for her age. I did reminded patient about blood work as she is overdue for this as well. Healthy diet and regular exercise is encouraged. (2) Anxiety: Code(s): F41.9 - Anxiety disorder, unspecified Category: Medical Plan: Anxiety and depression as well as PTSD she is seeing her counselor and psychiatrist through [facility]. I did offer a new referral to counselor or psych but this was declined. The patient is experiencing significant depression and anxiety, exacerbated by recent life stressors including a breakup and social conflicts. She is dissatisfied with her current psychiatrist. The therapeutic benefit of her pets was acknowledged. Encouraged to focus on small, achievable goals to combat feelings of being overwhelmed and to foster a sense of accomplishment. (3) PTSD (post-traumatic stress disorder): Code(s): F43.10 - Post-traumatic stress disorder, unspecified Category: Medical Plan: See above (4) Depression: Comment: [facility]ee therapist and Dimitris for psych Code(s): F32.9 - Major depressive disorder, single episode, unspecified Category: Medical Plan: See above (5) PCOS (polycystic ovarian syndrome): Code(s): E28.2 - Polycystic ovarian syndrome Category: Medical Plan: For PCOS patient has been noted to have high levels of testosterone. She will continue to follow up with endocrinology and has a appointment with gynecology coming up as well. (6) Disorder of intervertebral disc of thoracic spine: Comment: Family Physiatry Code(s): M51.9 - Unspecified thoracic, thoracolumbar and lumbosacral intervertebral disc disorder Category: Medical Plan: Continue to follow up with family physiatry and continue with gabapentin and cyclobenzaprine as needed. (7) Hypoglycemia: Code(s): E16.2 - Hypoglycemia, unspecified Category: Medical Plan: She will continue to follow with endocrinology for this concern (8) Obesity (BMI 30-39.9): Code(s): E66.9 - Obesity, unspecified Category: Medical Plan: Healthy diet and regular exercise is encouraged. Consideration was made for GLP ones by her patient relations manager advised patient to have blood work completed. (9) Constipation: Code(s): K59.00 - Constipation, unspecified Category: Medical Plan: For constipation reminded patient of the 3 rules of constipation; increase hydration, fiber supplement and activity as tolerated. Also discussed low FODMAP diet. (10) Pelvic pain: Code(s): R10.20 - Pelvic and perineal pain unspecified side Category: Medical Plan: The patient reports symptoms of pelvic pressure that began today, consistent with a potential urinary tract infection. A urine sample was negative for UTI. The patient may try [id number] Gas-X or a heating pad for symptomatic relief. She was instructed to seek emergency care if she is unable to urinate or if pelvic pain worsens. She has had ultrasounds in the past this not reveal any abnormality. She is nontender on exam today and low suspicion for infectious process. I did review red flag symptoms and when to present for re-evaluation. I did offer for vaginal swab and further imaging which was declined at this time. She will follow up if symptoms persist or worsen (11) Vulvar lesion: Code(s): N90.89 - Other specified noninflammatory disorders of vulva and perineum Category: Medical Plan: On exam patient does have 2 bumps consistent with folliculitis likely due to friction from patient's underwear. One lesion does have a raw area of skin from irritation. Plan to treat with Keflex for 7 days, discussed ways to keep the area clean. Given the raw tender lesion herpes does need to be ruled out and blood work was ordered today. There are no fluid-filled vesicles on exam Plan This note was constructed using voice recognition software. While every effort has been made to ensure accuracy and medical affairs director, still areas may have been included sometimes these areas may affect the content or meeting of the given symptoms. Total time spent caring for the patient today was 60 minutes. This includes time spent before the visit reviewing the chart, time spent during the visit, and time spent after the visit and documentation. Patient was informed and verbally consented to the use of an ambient scribe for clinic note documentation during this visit. Orders: Orders 2 Herpes Simplex Virus Ab IgG 11/04/25 N90.89 - Other specified noninflammatory disorders of vulva and perineum AMB Urinalysis Automated 11/04/25 Z13.9 - Encounter for screening, unspecified Bacterial Vaginosis Panel 11/04/25 R10.20 - Pelvic and perineal pain unspecified side Medications: New 2 cephalexin 500 mg PO QID 28 caps 0RF 7 days
[2025-11-04 16:09] VITALS: BP 106/66; PULSE 112; RESP 18; TEMP 36.4; O2SAT 98; BMI 34.5
--- OUTSIDE RECORDS SUMMARY | 2025-11-04 22:42 | XMS_ITS | Patient Health Record ---
Author Organization [employer] [facility] yesenia Belle Address [address] [place] [address] Care Team Providers Care Dyer Helper Name Role Phone Marsha Wadsworth Primary Care Provider Toni RAMOSNICOLÁSJASON Unavailable [phone] Reason For Referral No Information Medications Medication [...] W/U Status Risk Notes Problem Tobacco abuse (7156239929) Tobacco abuse (Z72.0) Active confirmed Problem Alcoholism (2933443) Alcoholism (F10.20) Active confirmed Plan Of Treatment [...] Insured Coverage Start Date Coverage End Date [facility] [address] [place] [address] [phone] [id number] Inge Doyle Self - patient is the insured Medical (General) History Medical History History ICD Code alcoholism
== END 2025-11-04 17:31 | disposition home or self-care (01) ==
LOC: HO.HMCH 15:58
DX: Z13.9 Encounter for screening, unspecified (principal)

== ENCOUNTER → 2025-11-04 15:57 | Outpatient (BNVA) | payer OTHER, SELFPAY | DX: Z00.00 Encounter for general adult medical examination without abnormal findings (principal); E28.2 Polycystic ovarian syndrome; F41.0 Panic disorder [episodic paroxysmal anxiety]; F41.9 Anxiety disorder, unspecified; F32.A Depression, unspecified; F43.10 Post-traumatic stress disorder, unspecified; M51.9 Unspecified thoracic, thoracolumbar and lumbosacral intervertebral disc disorder; E16.2 Hypoglycemia, unspecified; E66.9 Obesity, unspecified; K59.00 Constipation, unspecified; R10.20 Pelvic and perineal pain unspecified side; N90.89 Other specified noninflammatory disorders of vulva and perineum; Z87.440 Personal history of urinary (tract) infections; Z68.34 Body mass index [BMI] 34.0-34.9, adult | CPT/HCPCS: 81003; 99395 ==

== ENCOUNTER 2025-11-26 09:01 | Outpatient (REF) | payer OTHER, SELFPAY ==
--- OUTSIDE RECORDS SUMMARY | 2025-11-26 09:13 | XMS_ITS | Patient Health Record ---
Author Organization [employer] [facility] yesenia Belle Address [address] [place] [address] Care Team Providers Care Funds Development Director Name Role Phone Marsha Wadsworth Primary Care Provider Toni RAMOSNICOLÁSJASON Unavailable [phone] Reason For Referral No Information Medications Medication [...] W/U Status Risk Notes Problem Tobacco abuse (5265404847) Tobacco abuse (Z72.0) Active confirmed Problem Alcoholism (3436197) Alcoholism (F10.20) Active confirmed Plan Of Treatment [...] Insured Coverage Start Date Coverage End Date [facility] [address] [place] [address] [phone] [id number] Inge Doyle Self - patient is the insured Medical (General) History Medical History History ICD Code alcoholism
[2025-11-26 09:45] LABS: MANUAL DIFF FLAG NO
[2025-11-26 09:59] LABS: White Blood Count 7.8 X10*3/uL (4.8-10.8)
[2025-11-26 10:00] LABS: Hematocrit 40.6 % (37.0-47.0); Hemoglobin 13.4 g/dl (12.0-16.0); Imm Gran Abs Auto 0.02 X10*3/uL (0.00-0.03); Imm Gran Pct Auto 0.3 % (0.0-0.4); Lymphocytes Absolute Auto 3.4 X10*3/uL (1.2-4.9); Mean Corpuscular HGB Conc 33.0 g/dl (31.0-35.0); Mean Corpuscular Hemoglobin 28.0 pg (27.0-33.0); Mean Corpuscular Volume 84.9 fL (80.0-98.0); NRBC Abs Auto 0.000 X10*3/uL (0.0-0.012); NRBC Pct Auto 0.0 /100WBC (0.0-0.2); Platelet Count 369 X10*3/uL (160-400); Red Blood Count 4.78 X10*6/uL (4.20-5.50)
[2025-11-26 10:49] LABS: Alanine Aminotransferase 24 U/L (0-31); Albumin Level 3.5 g/dL (3.5-5.0); Alkaline Phosphatase 55 U/L (39-117); Anion Gap 11 (12-20); Aspartate Amino Transferase 27 U/L (5-31); Blood Urea Nitrogen 14 mg/dL (9-16); Calcium 8.8 mg/dL (8.4-10.2); Carbon Dioxide 24 mmol/L (22-29); Chloride 107 mmol/L (96-108); Cholesterol 234 mg/dL (<200); Estimated Glomerular Filt Rate > 60; HDL Cholesterol 38 mg/dL (>40); Iron 79 mcg/dL (30-160); Percent Iron Saturation 23 % (15-50); Potassium 3.9 mmol/L (3.3-5.1); Sodium 138 mmol/L (135-145); Total Iron Binding Capacity 344 mcg/dL (228-428); Total Protein 6.6 g/dL (6.5-8.0); Triglycerides 219 mg/dL (<150); Unsaturated Iron Binding 265 ug/dL
[2025-11-26 11:11] LABS: Ferritin 26 ng/mL (10-122); Free T4 (Free Thyroxine) 1.01 ng/dL (0.71-1.85)
[2025-11-26 11:20] LABS: Folate 10.0 ng/mL (> or = 4.0); Vitamin B12 774 pg/mL (200-900)
== END 2025-11-26 09:02 | disposition home or self-care (01) ==
LOC: HO.LAB 09:01
PROVIDERS: Absent Provider Internal Medicine Endocrinology, Diabetes & Metabolism
DX: Z00.00 Encounter for general adult medical examination without abnormal findings (principal); Z13.29 Encounter for screening for other suspected endocrine disorder; Z13.220 Encounter for screening for lipoid disorders; Z13.0 Encounter for screening for diseases of the blood and blood-forming organs and certain disorders involving the immune mechanism; Z13.21 Encounter for screening for nutritional disorder; N90.89 Other specified noninflammatory disorders of vulva and perineum; E11.65 Type 2 diabetes mellitus with hyperglycemia; E28.2 Polycystic ovarian syndrome; E61.1 Iron deficiency
CPT/HCPCS: 36415; 80053; 80061; 82306; 82607; 82627; 82728; 82746; 83036; 83498; 83540; 84403; 84439; 84443; 85025; 86695; 86696